=== PATIENT | female | born 1960 | race Hispanic/Latino ===

== ENCOUNTER 2017-12-10 06:06 | Day surgery (SDC) | payer MEDICARE ==
[2017-12-08 11:07] LABS: APPEARANCE,URINE Clear (CLEAR); BILIRUBIN,URINE Negative (NEGATIVE); COLOR,URINE Yellow (YELLOW); GLUCOSE, URINE (UA) Negative (NEGATIVE); KETONES,URINE Negative (NEGATIVE); LEUKOCYTE ESTERASE ,URINE Negative (NEGATIVE); NITRATE,URINE Negative (NEGATIVE); OCCULT BLOOD,URINE Negative (NEGATIVE); PH,URINE 6.5 (5.0-8.0); PROTEIN,URINE Negative (NEGATIVE); UROBILINOGEN,URINE 0.2 mg/dL (0.2-1.0)
[2017-12-08 11:08] LABS: BASOPHILS % (AUTO) 0.7 % (0.0-5.0); EOSINOPHILS % (AUTO) 3.4 % (0.0-8.0); HEMATOCRIT 34.3 % (36-48); LYMPHOCYTES % (AUTO) 22.6 % (21.0-51.0); MEAN CORPUSCULAR HEMOGLOBIN 31.7 pg (27.0-33.0); MEAN CORPUSCULAR HGB CONC 33.5 g/dL (32.0-36.0); MEAN CORPUSCULAR VOLUME 94.4 fL (79-99); NEUTROPHILS % (AUTO) 58.3 % (40.0-77.0); PLATELET COUNT (AUTO) 141 K/uL (130-400); RED BLOOD CELL COUNT(AUTO) 3.63 MIL/uL (4.00-5.50); RED CELL DISTRIBUTION WIDTH 13.7 % (11.0-15.5); WHITE BLOOD COUNT (AUTO) 5.7 K/uL (4.8-10.8)
[2017-12-08 11:13] LABS: CREATININE 0.9 mg/dL (0.5-1.5); POTASSIUM 4.8 mmol/L (3.5-5.1)
[2017-12-08 11:30] LABS: EOSINOPHILS % (MANUAL) 8 % (1-6); LYMPHOCYTES % (MANUAL) 12 % (22-44); MONOCYTES % (MANUAL) 8 % (2-9); REACTIVE LYMPHOCYTES 6 % (0-0); SEGMENTED NEUTROPHILS % 66 % (40-70)
[2017-12-08 11:31] LABS: INR 1.87 (0.85-1.15); MAN.DIFF COMMENT-IMPRESSION MANUAL DIFFERENTIAL; PARTIAL THROMBOPLASTIN TIME 37.2 SEC (26.3-35.5); PLATELET MORPHOLOGY COMMENT ADEQUATE; PROTHROMBIN TIME 19.4 SEC (9.6-11.6)
[2017-12-08 12:23] VITALS: BP 184/83
[~2017-12-10] VITALS: Ht 165.1 cm; Wt 72.6 kg
[2017-12-10] VITALS (12 sets, daily range): BP systolic 130–168; BP diastolic 62–83
[~2017-12-10 06:06] MED LIST: ASCO500T9 PO; CYCL30DR OU; DIGE1TAB PO; FE F1CAP8 PO; FOLI1TAB61 PO; KRILL OIL PO; L.AC1CAP6 PO; LYSI100014 PO; MAGN500C15 PO; METO25TA3 PO; MYCO360T PO; PRED2.5T PO; TACR1CAP18 PO; TRAV2.5D OU; WARF2.5T85 PO
[2017-12-10] MEDS ORDERED: SODIUM CHLORIDE 0.9% 1000ML 1,000 ML IV ONE (07:49)
[2017-12-10] MEDS ORDERED: HEPARIN SODIUM 1000UNIT/ML 10ML VIAL ONE (08:54)
[2017-12-10] MEDS ORDERED: SODIUM BICARB 50MEQ 50ML VIAL ONE (08:54)
[2017-12-10] MEDS ORDERED: NITROGLYCERIN 5 MG/ML 10 ML VIAL IV ONE (08:54)
[2017-12-10] MEDS ORDERED: ISOVUE-300 100 ML VIAL IV ONE (08:54)
[2017-12-10] MEDS ORDERED: MEPERIDINE-PF 25 MG/ML SYG ONE (08:55)
[2017-12-10] MEDS ORDERED: MIDAZOLAM HCL 1 MG/ML 2ML VIAL ONE (08:55)
[2017-12-10] MEDS ORDERED: LIDOCAINE HCL 2% 20ML ONE (08:55)
[2017-12-10] MEDS ORDERED: LABETALOL HCL 5 MG/ML 20ML VIAL IV ONE (09:36)
[2017-12-10] MEDS ORDERED: SODIUM CHLORIDE 0.9% 1000ML 1,000 ML IV SCH (10:45)
[2017-12-10] MEDS ORDERED: ACETAMINOPHEN-CODEINE 300/30MG TAB PO PRN (10:45)
[2017-12-10] MEDS ORDERED: CLOP75TA14 PO (10:51)
[2017-12-10] MEDS ORDERED: CLOPIDOGREL BISULFATE 300 MG TAB ONE (10:53)
[2017-12-10] MEDS ORDERED: WARFARIN SODIUM 10 MG TABLET PO SCH (11:00)
== END 2017-12-10 17:38 | disposition home or self-care (01) ==
LOC: SUH 06:06 → DAH 06:06 → SUH 17:38
PROVIDERS: ATTEND Internal Medicine Cardiovascular Disease
DX: I35.0 Nonrheumatic aortic (valve) stenosis (principal); I99.8 Other disorder of circulatory system; N18.9 Chronic kidney disease, unspecified; I12.9 Hypertensive chronic kidney disease with stage 1 through stage 4 chronic kidney disease, or unspecified chronic kidney disease; E78.5 Hyperlipidemia, unspecified; Z79.01 Long term (current) use of anticoagulants; Z79.899 Other long term (current) drug therapy; Z88.0 Allergy status to penicillin; Z88.8 Allergy status to other drugs, medicaments and biological substances; K55.1 Chronic vascular disorders of intestine; I70.25 Atherosclerosis of native arteries of other extremities with ulceration; L98.499 Non-pressure chronic ulcer of skin of other sites with unspecified severity
CPT/HCPCS: 36245 ×2; 36415 ×2; 37224; 37228; 37236; 37237; 71045; 75716; 75726; 80048; 81003; 85025; 85347 ×2; 85610; 85730; 93005; A4606; C1725 ×2; C1760; C1769 ×2; C1874; C1876; C1887; C1893; C1894; J1644; J3490 ×4; J7030; Q9967; 85007; J2175; J2250

== ENCOUNTER 2017-12-29 19:50 | Emergency (ER) | payer MEDICARE ==
[~2017-12-29 19:50] MED LIST changes: -ASCO500T9 PO; +CLOP75TA14 PO
[2017-12-29 20:48] LABS: APPEARANCE,URINE Clear (CLEAR); BILIRUBIN,URINE Negative (NEGATIVE); COLOR,URINE Yellow (YELLOW); GLUCOSE, URINE (UA) Negative (NEGATIVE); KETONES,URINE Negative (NEGATIVE); LEUKOCYTE ESTERASE ,URINE Negative (NEGATIVE); NITRATE,URINE Negative (NEGATIVE); OCCULT BLOOD,URINE Negative (NEGATIVE); PROTEIN,URINE Negative (NEGATIVE); UROBILINOGEN,URINE 0.2 mg/dL (0.2-1.0)
[2017-12-29 20:50] LABS: BASOPHILS % (AUTO) 0.5 % (0.0-5.0); EOSINOPHILS % (AUTO) 0.1 % (0.0-8.0); HEMATOCRIT 31.6 % (36-48); LYMPHOCYTES % (AUTO) 5.4 % (21.0-51.0); MEAN CORPUSCULAR HEMOGLOBIN 32.5 pg (27.0-33.0); MEAN CORPUSCULAR HGB CONC 34.5 g/dL (32.0-36.0); MEAN CORPUSCULAR VOLUME 94.4 fL (79-99); MONOCYTES % (AUTO) 6.8 % (3.0-13.0); NEUTROPHILS % (AUTO) 87.2 % (40.0-77.0); NUCLEATED RED BLOOD CELLS 0.1 % (0.0-0.19); PLATELET COUNT (AUTO) 151 K/uL (130-400); RED BLOOD CELL COUNT(AUTO) 3.35 MIL/uL (4.00-5.50); RED CELL DISTRIBUTION WIDTH 13.9 % (11.0-15.5); WHITE BLOOD COUNT (AUTO) 15.6 K/uL (4.8-10.8)
[2017-12-29 20:59] LABS: CREATININE 1.3 mg/dL (0.5-1.5); POTASSIUM 3.9 mmol/L (3.5-5.1)
[2017-12-29 23:51] LABS: ALBUMIN 3.5 g/dL (3.5-5.0); BILIRUBIN,DIRECT 0.1 mg/dL (0.0-0.3); BILIRUBIN,TOTAL 0.5 mg/dL (0.2-1.0); TOTAL PROTEIN, SERUM 7.3 g/dL (6.0-8.3)
[2017-12-30 00:07] LABS: INR 1.79 (0.85-1.15); PARTIAL THROMBOPLASTIN TIME 41.1 SEC (26.3-35.5); PROTHROMBIN TIME 18.6 SEC (9.6-11.6)
== END 2017-12-30 00:21 | disposition home or self-care (01) ==
LOC: EDH 19:50
DX: E87.1 Hypo-osmolality and hyponatremia (principal); I38 Endocarditis, valve unspecified; I12.0 Hypertensive chronic kidney disease with stage 5 chronic kidney disease or end stage renal disease; N18.6 End stage renal disease; M32.9 Systemic lupus erythematosus, unspecified; D64.9 Anemia, unspecified; Z88.0 Allergy status to penicillin; Z88.1 Allergy status to other antibiotic agents; Z88.8 Allergy status to other drugs, medicaments and biological substances; Z94.0 Kidney transplant status; Z98.62 Peripheral vascular angioplasty status; Z99.2 Dependence on renal dialysis
CPT/HCPCS: 36415; 71045; 80048; 80076; 81003; 85025; 85610; 85730; 87040; 87804

== ENCOUNTER 2018-12-23 23:51 | Inpatient (IN) | payer MEDICARE ==
[~2018-12-23] VITALS: Ht 165.1 cm; Wt 72.2 kg
[2018-12-24] MEDS ORDERED: IPRATROPIUM/ALBUTEROL SULFATE 3 ML SOLUTION IH ONE (00:37)
[2018-12-24] MEDS ORDERED: METHYLPREDNISOLONE SOD SUCC 125MG/2ML VIAL ONE (00:38)
[2018-12-24] MEDS ORDERED: HYDRALAZINE HCL 20 MG/ML VIAL ONE (01:23)
[2018-12-24] MEDS ORDERED: FUROSEMIDE 10 MG/ML 2ML VIAL ONE (02:09)
[2018-12-24] MEDS ORDERED: ALBUTEROL SULFATE 0.083% 2.5 MG/3 ML INH IH ONE (02:20)
--- NOTE | 2018-12-24 03:35 | NUR ---
Admission note: Admitted to floor via wheelchair. Fully awake and responsive. Placed in bed comfortably. Assessment done. VS checked and recorded. was with the patient. Oriented to room and used of call light. Policies and procedures explained. Plan of care initiated. Attached to telemetry at bedside with SR result. Observed for any unusual changes. Needs attended and cared for. Distress / discomfort not noted.
[2018-12-24 04:35] VITALS: BP 153/78
[2018-12-24 05:36] LABS: B-TYPE NATRIURETIC PEPTIDE 690 pg/mL (0-100)
[2018-12-24 06:16] LABS: INR 2.2 (0.85-1.15); PARTIAL THROMBOPLASTIN TIME 48.1 SEC (26.3-35.5); PROTHROMBIN TIME 22.7 SEC (9.6-11.6)
[2018-12-24 06:17] LABS: ALBUMIN 3.7 g/dL (3.5-5.0); BASOPHILS % (AUTO) 0.7 % (0.0-5.0); BILIRUBIN,TOTAL 0.3 mg/dL (0.2-1.0); CREATININE 1.6 mg/dL (0.5-1.5); EOSINOPHILS % (AUTO) 6.8 % (0.0-8.0); HEMATOCRIT 28.7 % (36-48); LYMPHOCYTES % (AUTO) 19.9 % (21.0-51.0); MEAN CORPUSCULAR HEMOGLOBIN 30.3 pg (27.0-33.0); MEAN CORPUSCULAR VOLUME 92.1 fL (79-99); MONOCYTES % (AUTO) 15.1 % (3.0-13.0); NEUTROPHILS % (AUTO) 57.5 % (40.0-77.0); NUCLEATED RED BLOOD CELLS 0.2 % (0.0-0.19); PLATELET COUNT (AUTO) 173 K/uL (130-400); POTASSIUM 4.2 mmol/L (3.5-5.1); RED BLOOD CELL COUNT(AUTO) 3.11 MIL/uL (4.00-5.50); TOTAL PROTEIN, SERUM 6.9 g/dL (6.0-8.3)
[2018-12-24 07:00] VITALS: BP 147/75
[2018-12-24] MEDS: LEVOFLOXACIN 500 MG/D5W 100 ML 100 ML IV SCH (07:45)
[2018-12-24 07:53] LABS: APPEARANCE,URINE CLEAR (CLEAR); COLOR,URINE YELLOW (YELLOW)
[2018-12-24 07:54] LABS: BILIRUBIN,URINE NEGATIVE (NEGATIVE); GLUCOSE, URINE (UA) NEGATIVE (NEGATIVE); KETONES,URINE NEGATIVE (NEGATIVE); LEUKOCYTE ESTERASE ,URINE NEGATIVE (NEGATIVE); NITRATE,URINE NEGATIVE (NEGATIVE); OCCULT BLOOD,URINE NEGATIVE (NEGATIVE); PH,URINE 6.5 (5.0-8.0); PROTEIN,URINE NEGATIVE (NEGATIVE); UROBILINOGEN,URINE 0.2 mg/dL (0.2-1.0)
[2018-12-24] MEDS: IPRATROPIUM/ALBUTEROL SULFATE 3 ML SOLUTION IH SCH ×2 (08:30→21:01)
[2018-12-24] MEDS: LIPASE/PROTEASE/AMYLASE 5000/17000/24000 PO SCH ×3 (08:30→17:00)
[2018-12-24] MEDS: LYSINE 1000 MG PO SCH (09:00)
[2018-12-24] MEDS: KRILL OIL PO SCH (09:00)
[2018-12-24] MEDS: RESTASIS OU SCH (09:00)
[2018-12-24] MEDS ORDERED: LATANOPROST 2.5 ML DROPS OU SCH (09:00)
[2018-12-24] MEDS: FOLIC ACID/VITAMIN B COMP W-C 1 MG CAPSULE PO SCH (09:49)
[2018-12-24] MEDS: LACTOBACILLUS RHAMNOSUS GG 1 EACH CAP.SPRINK PO SCH ×2 (09:49→21:35)
[2018-12-24] MEDS: METOPROLOL TARTRATE 25 MG TAB PO SCH ×2 (09:49→21:36)
[2018-12-24] MEDS: MAGNESIUM OXIDE 400 MG TABLET PO SCH (09:49)
[2018-12-24] MEDS: FE FUMARATE/FA/MV, MIN COMB#15 1 TAB PO SCH ×2 (09:50→21:35)
[2018-12-24] MEDS: CLOPIDOGREL BISULFATE 75 MG TAB PO SCH (09:50)
[2018-12-24] MEDS: TACROLIMUS 1 MG CAPSULE PO SCH (09:50)
[2018-12-24] MEDS: METHYLPREDNISOLONE SOD SUCC 40MG/ML 1ML IVP SCH ×2 (09:51→21:33)
[2018-12-24] MEDS: FUROSEMIDE 10 MG/ML 2ML VIAL IV SCH ×2 (09:53→21:32)
[2018-12-24 11:00] VITALS: BP 166/87
[2018-12-24 16:00] VITALS: BP 165/79
--- NOTE | 2018-12-24 16:26 | NUR ---
NOTIFIED DR MATEUS MELTON OF CT AND XRAY RESULTS , REGARDING PATIENT REFUSING LEVAQUIN UNTIL FULLY CERTAIN IT IS AN INFECTION. PER MD STILL WILL KEEP MEDICATION ACTIVE BECAUSE PATIENT NEEDS IT AND IF PATIENT REFUSES TO DOCRUMENT REFUSAL ,ALSO TO HAVE BENCHMARK BE CONSULTED . EXPLAINED TO NANY VALDES NEW ORDER. PATIENT STATED SHE WILL FEEL BETTER HEARING FROM A PULMONARY DOCTOR
[2018-12-24 20:00] VITALS: BP 157/79
[2018-12-24] MEDS: WARFARIN SODIUM 7.5 MG TAB PO SCH (21:34)
[2018-12-24] MEDS ORDERED: BENZONATATE 100 MG CAPSULE PO PRN (23:30)
[2018-12-24] MEDS ORDERED: BENZONATATE 100 MG CAPSULE PO ONE (23:33)
[2018-12-25] VITALS (7 sets, daily range): BP systolic 135–174; BP diastolic 70–92
[2018-12-25 04:27] LABS: BASOPHILS % (AUTO) 0.2 % (0.0-5.0); HEMATOCRIT 27.6 % (36-48); MEAN CORPUSCULAR HEMOGLOBIN 30.8 pg (27.0-33.0); MEAN CORPUSCULAR HGB CONC 33.3 g/dL (32.0-36.0); MEAN CORPUSCULAR VOLUME 92.4 fL (79-99); MONOCYTES % (AUTO) 6.4 % (3.0-13.0); NEUTROPHILS % (AUTO) 86.4 % (40.0-77.0); PLATELET COUNT (AUTO) 182 K/uL (130-400); RED BLOOD CELL COUNT(AUTO) 2.99 MIL/uL (4.00-5.50); RED CELL DISTRIBUTION WIDTH 14.3 % (11.0-15.5); WHITE BLOOD COUNT (AUTO) 8.3 K/uL (4.8-10.8)
[2018-12-25 04:31] LABS: INR 3.05 (0.85-1.15); PROTHROMBIN TIME 31.3 SEC (9.6-11.6)
[2018-12-25 04:35] LABS: CREATININE 1.8 mg/dL (0.5-1.5)
[2018-12-25] MEDS: IPRATROPIUM/ALBUTEROL SULFATE 3 ML SOLUTION IH SCH ×2 (07:41→21:00)
[2018-12-25] MEDS: LEVOFLOXACIN 500 MG/D5W 100 ML 100 ML IV SCH (07:45)
[2018-12-25] MEDS: RESTASIS OU SCH (08:43)
[2018-12-25] MEDS: LYSINE 1000 MG PO SCH (08:44)
[2018-12-25] MEDS: KRILL OIL PO SCH (08:44)
[2018-12-25] MEDS: MYCOPHENOLATE SODIUM 360 MG PO SCH (08:44)
[2018-12-25] MEDS: CLOPIDOGREL BISULFATE 75 MG TAB PO SCH (09:00)
[2018-12-25] MEDS: LACTOBACILLUS RHAMNOSUS GG 1 EACH CAP.SPRINK PO SCH ×2 (10:21→23:04)
[2018-12-25] MEDS: FE FUMARATE/FA/MV, MIN COMB#15 1 TAB PO SCH ×2 (10:21→23:04)
[2018-12-25] MEDS: FOLIC ACID/VITAMIN B COMP W-C 1 MG CAPSULE PO SCH (10:21)
[2018-12-25] MEDS: MAGNESIUM OXIDE 400 MG TABLET PO SCH (10:21)
[2018-12-25] MEDS: METOPROLOL TARTRATE 25 MG TAB PO SCH ×2 (10:21→23:04)
[2018-12-25] MEDS: METHYLPREDNISOLONE SOD SUCC 40MG/ML 1ML IVP SCH ×2 (10:21→23:03)
[2018-12-25] MEDS: TACROLIMUS 1 MG CAPSULE PO SCH (10:21)
[2018-12-25] MEDS: FUROSEMIDE 10 MG/ML 2ML VIAL IV SCH (10:28)
[2018-12-25] MEDS: LIPASE/PROTEASE/AMYLASE 5000/17000/24000 PO SCH (16:35)
[2018-12-25] MEDS: BUDESONIDE 0.5 MG/2 ML INH IH SCH (18:20)
[2018-12-25] MEDS: DOXYCYCLINE HYCLATE 100 MG TABLET PO SCH (23:04)
[2018-12-25] MEDS: WARFARIN SODIUM 7.5 MG TAB PO SCH (23:04)
[2018-12-26 03:31] LABS: ABG BASE EXCESS -3.8 mmol/L (-2.0-3.0); ABG HCO3 20.5 mmol/L (21.0-28.0); ABG OXYGEN SATURATION 97.2 % (95.0-99.0); ABG PCO2 36 mmHg (32-45)
[2018-12-26 03:50] VITALS: BP 158/80
[2018-12-26 04:40] LABS: HEMATOCRIT 29.6 % (36-48); MEAN CORPUSCULAR HEMOGLOBIN 30.2 pg (27.0-33.0); MEAN CORPUSCULAR HGB CONC 33.1 g/dL (32.0-36.0); MEAN CORPUSCULAR VOLUME 91.3 fL (79-99); PLATELET COUNT (AUTO) 207 K/uL (130-400); RED BLOOD CELL COUNT(AUTO) 3.24 MIL/uL (4.00-5.50); RED CELL DISTRIBUTION WIDTH 14.3 % (11.0-15.5); WHITE BLOOD COUNT (AUTO) 9.4 K/uL (4.8-10.8)
[2018-12-26 04:51] LABS: PARTIAL THROMBOPLASTIN TIME 44.5 SEC (26.3-35.5)
[2018-12-26 04:52] LABS: ALBUMIN 3.4 g/dL (3.5-5.0); BILIRUBIN,TOTAL 0.3 mg/dL (0.2-1.0); CREATININE 1.7 mg/dL (0.5-1.5); MAGNESIUM 2.1 mg/dL (1.80-2.40); PHOSPHORUS 4.2 mg/dL (2.5-4.9); POTASSIUM 4.3 mmol/L (3.5-5.1); TOTAL PROTEIN, SERUM 7.2 g/dL (6.0-8.3)
[2018-12-26 05:15] LABS: INR 3.54 (0.85-1.15); PROTHROMBIN TIME 36.3 SEC (9.6-11.6)
[2018-12-26] MEDS: BUDESONIDE 0.5 MG/2 ML INH IH SCH ×2 (07:38→18:00)
[2018-12-26] MEDS: LEVOFLOXACIN 500 MG/D5W 100 ML 100 ML IV SCH (07:45)
[2018-12-26 08:21] VITALS: BP 151/83
[2018-12-26] MEDS: LIPASE/PROTEASE/AMYLASE 5000/17000/24000 PO SCH (08:31)
[2018-12-26] MEDS: MYCOPHENOLATE SODIUM 360 MG PO SCH (09:00)
[2018-12-26] MEDS: LYSINE 1000 MG PO SCH (09:00)
[2018-12-26] MEDS: DOXYCYCLINE HYCLATE 100 MG TABLET PO SCH (09:00)
[2018-12-26] MEDS: KRILL OIL PO SCH (09:00)
[2018-12-26] MEDS: RESTASIS OU SCH (09:00)
[2018-12-26] MEDS: LACTOBACILLUS RHAMNOSUS GG 1 EACH CAP.SPRINK PO SCH (10:45)
[2018-12-26] MEDS: METOPROLOL TARTRATE 25 MG TAB PO SCH (10:45)
[2018-12-26] MEDS: TACROLIMUS 1 MG CAPSULE PO SCH (10:46)
[2018-12-26] MEDS: FOLIC ACID/VITAMIN B COMP W-C 1 MG CAPSULE PO SCH (10:46)
[2018-12-26] MEDS: FE FUMARATE/FA/MV, MIN COMB#15 1 TAB PO SCH (10:46)
[2018-12-26] MEDS: MAGNESIUM OXIDE 400 MG TABLET PO SCH (10:46)
[2018-12-26] MEDS: METHYLPREDNISOLONE SOD SUCC 40MG/ML 1ML IVP SCH (10:47)
[2018-12-26 11:59] VITALS: BP 142/78
[2018-12-26] MEDS ORDERED: DOXY100C2 PO (16:14)
[2018-12-26] MEDS ORDERED: PRED10TA3 PO (16:14)
[2018-12-26] MEDS ORDERED: BENZ-17 PO (16:14)
--- NOTE | 2018-12-26 16:42 | NUR ---
DR. JAVIER Rodriguez was informed of INR 3.54 today. Stated parameters are 2.5 to 3.5 and that at 3.54 patient is within parameters and no further orders.
--- NOTE | 2018-12-27 07:41 | NUR ---
[facility], WILL RETURN , NO CONCERNS VOICED BY JENNY TO [facility]. Addendum: 12/27/18 at 0742 by MICAELA ESCOBEDO RN CM Amended: Links added.
== END 2018-12-26 19:38 | disposition home or self-care (01) | DRG 682 ==
LOC: EDH 23:51 → EDHIP 12-24 02:23 → 3AH 12-24 04:35
PROVIDERS: ADMIT Internal Medicine Nephrology; ATTEND Internal Medicine Nephrology
DX: N17.9 Acute kidney failure, unspecified (principal); J81.0 Acute pulmonary edema; J81.1 Chronic pulmonary edema; J20.9 Acute bronchitis, unspecified; N18.9 Chronic kidney disease, unspecified; I12.9 Hypertensive chronic kidney disease with stage 1 through stage 4 chronic kidney disease, or unspecified chronic kidney disease; D64.9 Anemia, unspecified; G62.9 Polyneuropathy, unspecified; I08.0 Rheumatic disorders of both mitral and aortic valves; I48.0 Paroxysmal atrial fibrillation; I73.9 Peripheral vascular disease, unspecified; J84.10 Pulmonary fibrosis, unspecified; M32.9 Systemic lupus erythematosus, unspecified; M81.0 Age-related osteoporosis without current pathological fracture; Z96.643 Presence of artificial hip joint, bilateral; Z79.01 Long term (current) use of anticoagulants; Z79.52 Long term (current) use of systemic steroids; Z98.61 Coronary angioplasty status; Z95.2 Presence of prosthetic heart valve; Z89.421 Acquired absence of other right toe(s); Z88.0 Allergy status to penicillin; Z88.8 Allergy status to other drugs, medicaments and biological substances; Z83.3 Family history of diabetes mellitus
CPT/HCPCS: 36415; 36600; 71045; 71250; 80048; 80053; 81003; 82550; 82803; 83605; 83690; 83735; 83880; 84100; 84484; 85025; 85027; 85610; 85730; 87040; 87804; 93005; 93306; 94640; 94664; G0378; J0360; J1940; J1956; J2920; J2930; J7507

== ENCOUNTER 2019-05-19 06:11 | Observation (INO) | payer MEDICARE ==
[2019-05-14 12:36] LABS: BASOPHILS % (AUTO) 1.5 % (0.0-5.0); EOSINOPHILS % (AUTO) 2.2 % (0.0-8.0); HEMATOCRIT 32.4 % (36-48); LYMPHOCYTES % (AUTO) 18.6 % (21.0-51.0); MEAN CORPUSCULAR HEMOGLOBIN 29.7 pg (27.0-33.0); MEAN CORPUSCULAR HGB CONC 32.5 g/dL (32.0-36.0); MEAN CORPUSCULAR VOLUME 91.3 fL (79-99); MONOCYTES % (AUTO) 13.1 % (3.0-13.0); NEUTROPHILS % (AUTO) 64.6 % (40.0-77.0); PLATELET COUNT (AUTO) 153 K/uL (130-400); RED BLOOD CELL COUNT(AUTO) 3.55 MIL/uL (4.00-5.50); RED CELL DISTRIBUTION WIDTH 15.5 % (11.0-15.5); WHITE BLOOD COUNT (AUTO) 4.4 K/uL (4.8-10.8)
[2019-05-14 12:41] LABS: APPEARANCE,URINE Clear (CLEAR); BILIRUBIN,URINE Negative (NEGATIVE); COLOR,URINE Yellow (YELLOW); GLUCOSE, URINE (UA) Negative (NEGATIVE); KETONES,URINE Negative (NEGATIVE); LEUKOCYTE ESTERASE ,URINE Negative (NEGATIVE); NITRATE,URINE Negative (NEGATIVE); OCCULT BLOOD,URINE Negative (NEGATIVE); PROTEIN,URINE Negative (NEGATIVE); UROBILINOGEN,URINE 0.2 mg/dL (0.2-1.0)
[2019-05-14 12:44] VITALS: BP 193/96
[2019-05-14 12:49] LABS: CREATININE 1.6 mg/dL (0.5-1.5); POTASSIUM 4.7 mmol/L (3.5-5.1)
[2019-05-14 12:57] LABS: INR 2.71 (0.85-1.15); PARTIAL THROMBOPLASTIN TIME 42.2 SEC (26.3-35.5); PROTHROMBIN TIME 27.9 SEC (9.6-11.6)
--- NOTE | 2019-05-17 12:28 | NUR ---
SPOKE TO ELIOT PERERA AND REPORTED WBC 4.4, HEMOGLOBIN 10.6, BUN 41, MANAGER SERVICING 1.6, INR 2.71, PTT 42.2, NEW ORDER FOR PT/INR IN AM.
[2019-05-18 06:10] VITALS: BP 176/94
[2019-05-18 06:39] LABS: INR 2.31 (0.85-1.15); PARTIAL THROMBOPLASTIN TIME 38.3 SEC (26.3-35.5); PROTHROMBIN TIME 23.9 SEC (9.6-11.6)
--- NOTE | 2019-05-18 07:50 | NUR ---
ABNORMAL INR RESULT REPORTED TO NICOLE MASSEY. PT FORGOT TO HOLD WARFARIN 2 DAYS PRIOR TO PROCEDURE. PT RESCHEDULED FOR TOMORROW 05/19/2019.
--- NOTE | 2019-05-18 07:50 | NUR ---
PT INFORMED TO KEEP HOLDING WARFARIN.
[~2019-05-19] VITALS: Ht 165.1 cm; Wt 67.5 kg
[2019-05-19] VITALS (14 sets, daily range): BP systolic 122–174; BP diastolic 57–86
[~2019-05-19 06:11] MED LIST changes: -CLOP75TA14 PO; -CYCL30DR OU; -DIGE1TAB PO; -FE F1CAP8 PO; -FOLI1TAB61 PO; -KRILL OIL PO; -L.AC1CAP6 PO; -LYSI100014 PO; -MAGN500C15 PO; +SODIUM CHLORIDE 0.9% 1000ML 1,000 ML IV SCH; +SODIUM CHLORIDE 0.9% 500ML 500 ML IV SCH; -TRAV2.5D OU; +WARF1TAB83 PO
--- NOTE | 2019-05-19 06:15 | NUR ---
PRE-PROCEDURE RECEIVED PT TO ROOM 7 VIA AMBULATING FOR SCHEDULED LHC. AWAKE IN NO ACUTE DISTRESS. CONNECTED TO CONTINUOUS CARDIOPULMONARY MONITORING. REPORTS NUMBNESS TO BILATERAL TOES. UNABLE TO FIND DORSALIS PEDIS PULSE OF LEFT FOOT W/ DOPPLER, FOOT COOL TO TOUCH. PT REPORTS SHE HAS PAIN TO LEFT LEG WHEN AMBULATING. NON-FUNCTIONING AV FISTULA TO LEFT UPPER ARM/PT S/P KIDNEY TRANSPLANT 2005. SIDE RAILS UP X2, BED IN LOWEST POSITION, AND CALL LIGHT W/IN REACH. Addendum: 05/19/19 at 0814 by KELECHI FRANKLIN RN RN NON-FUNCTIONING RIGHT CHEST PAC.
[2019-05-19] MEDS ORDERED: SODIUM CHLORIDE 0.9% 1000ML 1,000 ML IV ONE (06:24)
[2019-05-19 06:35] LABS: CREATININE 1.4 mg/dL (0.5-1.5); POTASSIUM 4.8 mmol/L (3.5-5.1)
[2019-05-19 06:36] LABS: INR 1.61 (0.85-1.15); PROTHROMBIN TIME 16.7 SEC (9.6-11.6)
--- NOTE | 2019-05-19 07:20 | NUR ---
LAB RESULTS NICOLE MASSEY NOTIFIED OF PT 16.7/INR 1.6. CREATININE 1.4. NO NEW ORDERS RECEIVED.
--- NOTE | 2019-05-19 08:14 | NUR ---
PROCEDURE TRANSFERRED TO ERECTING ENGINEER VIA BED FOR [facility] BY JENNY BERRY. AWAKE IN NO ACUTE DISTRESS.
[2019-05-19] MEDS ORDERED: IOHEXOL 350 MG/ML 100ML INFUS..BTL IV ONE (08:19)
[2019-05-19] MEDS ORDERED: IOHEXOL-350 50ML VIAL IV ONE (08:19)
[2019-05-19] MEDS ORDERED: LIDOCAINE HCL 1% 20 ML VIAL ONE (08:19)
[2019-05-19] MEDS ORDERED: NITROGLYCERIN 5 MG/ML 10 ML VIAL IV ONE (08:19)
[2019-05-19] MEDS ORDERED: HEPARIN SODIUM 1000UNIT/ML 10ML VIAL ONE (08:19)
[2019-05-19] MEDS ORDERED: SODIUM BICARB 50MEQ 50ML VIAL ONE (08:19)
[2019-05-19] MEDS ORDERED: FENTANYL CITRATE PF 50 MCG/1 ML 2ML VIAL ONE (08:29)
[2019-05-19] MEDS ORDERED: MIDAZOLAM HCL 1 MG/ML 2ML VIAL ONE ×2 (08:29→08:49)
[2019-05-19] MEDS ORDERED: IOHEXOL-350 75 ML VIAL IV ONE (09:33)
[2019-05-19] MEDS ORDERED: HYDRALAZINE HCL 20 MG/ML VIAL ONE (09:38)
[2019-05-19] MEDS ORDERED: LABETALOL HCL 5 MG/ML 20ML VIAL IV ONE (09:55)
[2019-05-19] MEDS ORDERED: CLOPIDOGREL BISULFATE 300 MG TAB ONE (10:10)
[2019-05-19] MEDS ORDERED: ASPIRIN 81MG TAB.CHEW ONE (10:10)
[2019-05-19] MEDS ORDERED: CLOPIDOGREL BISULFATE 300 MG TAB PO SCH (10:15)
[2019-05-19] MEDS ORDERED: TEMAZEPAM 30 MG CAP PO PRN (10:15)
[2019-05-19] MEDS ORDERED: WARFARIN SODIUM 5 MG TAB PO SCH (10:15)
[2019-05-19] MEDS ORDERED: ONDANSETRON HCL 4 MG/2 ML VIAL IVP PRN (10:15)
[2019-05-19] MEDS ORDERED: SODIUM CHLORIDE 0.9% 1000ML 1,000 ML IV SCH (10:15)
[2019-05-19] MEDS ORDERED: NITROGLYCERIN 50 MG/D5% WATER 1 BOT IV PRN (10:15)
[2019-05-19] MEDS: PANTOPRAZOLE SODIUM 40 MG TABLET.DR PO SCH (10:51)
--- NOTE | 2019-05-19 10:51 | NUR ---
POST-PROCEDURE RECEIVED FROM PHYSICIAN ASSISTANT PSYCHIATRY S/P C W/STENTS X3. CONNECTED TO CONTINUOUS CARDIOPULMONARY MONITORING. AWAKE IN NO ACUTE DISTRESS. PT EDUCATED TO KEEP RIGHT LEG STRAIGHT AND TO KEEP HEAD FLAT. PT VERBALIZED UNDERSTANDING. SIDE RAILS UP X2, BED IN LOWEST POSITION, AND CALL LIGHT W/IN REACH.
--- NOTE | 2019-05-19 13:11 | NUR ---
ORDER DR. MATUTE NOTIFIED OF CONSULT ORDER. NO NEW ORDERS RECEIVED.
[2019-05-19] MEDS ORDERED: PHARMACY COMMUNICATION MISC SCH (14:00)
--- NOTE | 2019-05-19 15:11 | NUR ---
REPORT REPORT GIVEN TO JENNY SERRA USING SBAR/VERBALIZED UNDERSTANDING.
--- NOTE | 2019-05-19 15:11 | NUR ---
REPORT HANDOFF/COMMUNICATION RECEIVED REPORT FROM JENNY LORENZ USING SBAR AT BEDSIDE. PATIENT AAOX3, RESPIRATIONS UNLABORED, VITAL SIGNS STABLE. PATIENT DENIES ANY PAIN AT THIS TIME. FEMORAL SITE WITH DSTAT IN PLACE IS DRY AND INTACT, NO SWELLING OR DRAINAGE NOTED. AREA IS SOFT AND NONTENDER. PEDAL PULSES PRESENT WITH DOPPLER. WILL CONTINUE TO MONITOR PATIENT.
--- NOTE | 2019-05-19 16:30 | NUR ---
REPORT/HANDOFF HANDOFF/REPORT GIVEN TO JENNY ALVARADO USING SBAR. ALL QUESTIONS/CONCERNS ADDRESSED
--- NOTE | 2019-05-19 17:58 | NUR ---
report report given to yue mcclellan rn
--- NOTE | 2019-05-19 18:00 | NUR ---
trasnferred patient transfered to room 2 Addendum: 05/19/19 at 1816 by CHRISTIANO GARCIA RN transfer patient transferred to room 230, receiving nurse Mae Reed RN
[2019-05-19] MEDS: TACROLIMUS 1 MG CAPSULE PO SCH (20:16)
[2019-05-19] MEDS: METOPROLOL TARTRATE 25 MG TAB PO SCH (20:17)
[2019-05-20 03:37] LABS: HEMATOCRIT 28.3 % (36-48); MEAN CORPUSCULAR HEMOGLOBIN 30.1 pg (27.0-33.0); MEAN CORPUSCULAR HGB CONC 33.1 g/dL (32.0-36.0); MEAN CORPUSCULAR VOLUME 90.8 fL (79-99); NUCLEATED RED BLOOD CELLS 0.1 % (0.0-0.19); PLATELET COUNT (AUTO) 131 K/uL (130-400); RED BLOOD CELL COUNT(AUTO) 3.12 MIL/uL (4.00-5.50); RED CELL DISTRIBUTION WIDTH 15.3 % (11.0-15.5); WHITE BLOOD COUNT (AUTO) 4.6 K/uL (4.8-10.8)
[2019-05-20 04:01] LABS: INR 1.37 (0.85-1.15); PROTHROMBIN TIME 14.3 SEC (9.6-11.6)
[2019-05-20 04:16] LABS: CREATININE 1.6 mg/dL (0.5-1.5); POTASSIUM 4.4 mmol/L (3.5-5.1)
[2019-05-20 04:48] VITALS: BP 166/87
[2019-05-20 08:02] VITALS: BP 158/77
[2019-05-20] MEDS ORDERED: ENOXAPARIN SODIUM 80 MG/0.8 ML SQ SCH (08:30)
[2019-05-20] MEDS ORDERED: WARFARIN SODIUM 2.5 MG TAB PO SCH (09:00)
[2019-05-20] MEDS ORDERED: WARFARIN SODIUM 5 MG TAB PO SCH (09:00)
[2019-05-20] MEDS: MYCOPHENOLATE SODIUM PO SCH (09:00)
[2019-05-20] MEDS: TACROLIMUS 1 MG CAPSULE PO SCH ×2 (09:28→21:24)
[2019-05-20] MEDS: ASPIRIN 81MG TAB.CHEW PO SCH (09:28)
[2019-05-20] MEDS: CLOPIDOGREL BISULFATE 75 MG TAB PO SCH (09:29)
[2019-05-20] MEDS: PANTOPRAZOLE SODIUM 40 MG TABLET.DR PO SCH (09:29)
[2019-05-20] MEDS: METOPROLOL TARTRATE 25 MG TAB PO SCH ×2 (09:30→21:24)
[2019-05-20] MEDS ORDERED: SODIUM CHLORIDE 0.9% 1000ML 1,000 ML IV SCH (09:30)
[2019-05-20] MEDS ORDERED: PHARMACY COMMUNICATION MISC SCH (09:45)
--- NOTE | 2019-05-20 10:24 | NUR ---
DCP: HOME met with pt and sherly Mukherjeelar [phone]. Pt is s/p kidney transplant in 2006. Pt was on dialysis 5yrs prior to transplant. Pt is now independent of ADLS, drives, has melquiades w/c,bs, built in bath bench. PCP is Monica Carrasco, and pharm is either [facility] or [facility]. Denies dc needs at this time. Plan is home at [facility] to follow and assist as needed Addendum: 05/20/19 at 1028 by ROBBY WREN Amended: Links added.
[2019-05-20 12:00] VITALS: BP 143/68
[2019-05-20 15:29] VITALS: BP 150/77
[2019-05-20] MEDS ORDERED: WARFARIN SODIUM 2 MG TAB PO SCH (16:00)
[2019-05-20] MEDS: SODIUM CHLORIDE 0.9% 1000ML 1,000 ML IV SCH (17:36)
[2019-05-20 19:39] VITALS: BP 136/68
[2019-05-21] VITALS: BP 151/68
[2019-05-21] MEDS: SODIUM CHLORIDE 0.9% 1000ML 1,000 ML IV SCH (02:30)
[2019-05-21 03:56] VITALS: BP 158/85
[2019-05-21 04:18] LABS: CREATININE 1.5 mg/dL (0.5-1.5); POTASSIUM 4.2 mmol/L (3.5-5.1)
[2019-05-21 07:00] VITALS: BP 158/81
[2019-05-21] MEDS ORDERED: FUROSEMIDE 10 MG/ML 10ML VIAL IVP SCH (07:45)
[2019-05-21 08:03] LABS: INR 1.46 (0.85-1.15); PROTHROMBIN TIME 15.2 SEC (9.6-11.6)
[2019-05-21] MEDS: TACROLIMUS 1 MG CAPSULE PO SCH (08:08)
[2019-05-21] MEDS: ASPIRIN 81MG TAB.CHEW PO SCH (08:09)
[2019-05-21] MEDS: PANTOPRAZOLE SODIUM 40 MG TABLET.DR PO SCH (08:09)
[2019-05-21] MEDS: CLOPIDOGREL BISULFATE 75 MG TAB PO SCH (08:09)
[2019-05-21] MEDS: METOPROLOL TARTRATE 25 MG TAB PO SCH (08:09)
[2019-05-21] MEDS: MYCOPHENOLATE SODIUM PO SCH (08:11)
[2019-05-21] MEDS ORDERED: ENOXAPARIN SODIUM 80 MG/0.8 ML SQ SCH (08:45)
[2019-05-21 11:00] VITALS: BP 157/74
[2019-05-25] MEDS ORDERED: PREDNISONE 5 MG TABLET PO SCH (09:00)
== END 2019-05-21 15:20 | disposition home or self-care (01) ==
LOC: DAH 06:11 → DAHIP 06:12 → 2AH 18:05
PROVIDERS: ADMIT Internal Medicine; ATTEND Internal Medicine
DX: I25.10 Atherosclerotic heart disease of native coronary artery without angina pectoris (principal); E87.70 Fluid overload, unspecified; G62.9 Polyneuropathy, unspecified; I44.7 Left bundle-branch block, unspecified; I45.81 Long QT syndrome; R14.0 Abdominal distension (gaseous); R19.7 Diarrhea, unspecified; I08.0 Rheumatic disorders of both mitral and aortic valves; I48.0 Paroxysmal atrial fibrillation; M32.9 Systemic lupus erythematosus, unspecified; M87.9 Osteonecrosis, unspecified; N18.9 Chronic kidney disease, unspecified; Z95.2 Presence of prosthetic heart valve; Z94.0 Kidney transplant status; Z99.2 Dependence on renal dialysis; Z96.649 Presence of unspecified artificial hip joint; Z79.01 Long term (current) use of anticoagulants; Z79.52 Long term (current) use of systemic steroids; Z79.899 Other long term (current) drug therapy
CPT/HCPCS: 36415 ×5; 71045 ×2; 80048 ×4; 81003; 82948; 85025; 85027; 85610 ×5; 85730 ×4; 93005 ×2; 93454; 96361 ×4; 96372 ×2; 96374; A4215 ×2; A4216 ×2; A4221 ×2; A4222 ×2; A4223 ×5; A4606 ×4; C1760; C1769; C1874 ×3; C1887 ×2; C1894 ×2; C9600 ×3; G0378 ×53; J0360; J1644 ×2; J1650 ×2; J1940; J2250 ×2; J3010; J3490 ×3; J7030 ×3; J7507 ×4; Q9965; Q9967 ×3; 96360; 99156; 99157

== ENCOUNTER → 2020-03-29 | Outpatient (CLI) | payer MEDICARE ==
[~2020-03-29] MED LIST changes: -SODIUM CHLORIDE 0.9% 1000ML 1,000 ML IV SCH; -SODIUM CHLORIDE 0.9% 500ML 500 ML IV SCH; -WARF1TAB83 PO
== END | disposition home or self-care (01) ==
LOC: WHH 10:01
PROVIDERS: ATTEND Podiatrist Foot & Ankle Surgery
DX: I70.245 Atherosclerosis of native arteries of left leg with ulceration of other part of foot (principal); L97.522 Non-pressure chronic ulcer of other part of left foot with fat layer exposed; M32.10 Systemic lupus erythematosus, organ or system involvement unspecified; M12.9 Arthropathy, unspecified; I12.9 Hypertensive chronic kidney disease with stage 1 through stage 4 chronic kidney disease, or unspecified chronic kidney disease; N18.9 Chronic kidney disease, unspecified; I25.10 Atherosclerotic heart disease of native coronary artery without angina pectoris; G62.9 Polyneuropathy, unspecified; J45.909 Unspecified asthma, uncomplicated; Z94.0 Kidney transplant status; Z95.1 Presence of aortocoronary bypass graft; Z99.0 Dependence on aspirator; Z79.899 Other long term (current) drug therapy; Z79.2 Long term (current) use of antibiotics; Z79.52 Long term (current) use of systemic steroids; Z96.643 Presence of artificial hip joint, bilateral; Z95.2 Presence of prosthetic heart valve
CPT/HCPCS: G0463

== ENCOUNTER → 2020-04-12 | Outpatient (CLI) | payer MEDICARE ==
[~2020-04-12] MED LIST changes: +LIDOCAINE HCL 4% LTA SOL 4 ML VIAL TP ONE
== END | disposition home or self-care (01) ==
LOC: WHH 10:00
PROVIDERS: ATTEND Podiatrist Foot & Ankle Surgery
DX: I70.245 Atherosclerosis of native arteries of left leg with ulceration of other part of foot (principal); L97.522 Non-pressure chronic ulcer of other part of left foot with fat layer exposed; M32.10 Systemic lupus erythematosus, organ or system involvement unspecified; M12.9 Arthropathy, unspecified; I12.9 Hypertensive chronic kidney disease with stage 1 through stage 4 chronic kidney disease, or unspecified chronic kidney disease; N18.9 Chronic kidney disease, unspecified; I25.10 Atherosclerotic heart disease of native coronary artery without angina pectoris; I48.0 Paroxysmal atrial fibrillation; G62.9 Polyneuropathy, unspecified; J45.909 Unspecified asthma, uncomplicated; Z94.0 Kidney transplant status; Z95.1 Presence of aortocoronary bypass graft; Z99.0 Dependence on aspirator; Z79.899 Other long term (current) drug therapy; Z79.2 Long term (current) use of antibiotics; Z79.52 Long term (current) use of systemic steroids; Z96.643 Presence of artificial hip joint, bilateral; Z95.2 Presence of prosthetic heart valve
CPT/HCPCS: G0463

== ENCOUNTER → 2020-04-19 | Outpatient (CLI) | payer MEDICARE ==
[~2020-04-19] MED LIST changes: -LIDOCAINE HCL 4% LTA SOL 4 ML VIAL TP ONE
== END | disposition home or self-care (01) ==
LOC: RAH 14:31
PROVIDERS: ATTEND Podiatrist Foot & Ankle Surgery
DX: L97.522 Non-pressure chronic ulcer of other part of left foot with fat layer exposed (principal); M79.89 Other specified soft tissue disorders
CPT/HCPCS: 73718

== ENCOUNTER → 2020-04-26 | Outpatient (CLI) | payer MEDICARE | END | disposition home or self-care (01) | LOC: WHH 10:00 | PROVIDERS: ATTEND Podiatrist Foot & Ankle Surgery | DX: I70.245 Atherosclerosis of native arteries of left leg with ulceration of other part of foot (principal); L97.522 Non-pressure chronic ulcer of other part of left foot with fat layer exposed; I12.9 Hypertensive chronic kidney disease with stage 1 through stage 4 chronic kidney disease, or unspecified chronic kidney disease; N18.9 Chronic kidney disease, unspecified; I25.10 Atherosclerotic heart disease of native coronary artery without angina pectoris; I48.0 Paroxysmal atrial fibrillation; G62.9 Polyneuropathy, unspecified; J45.909 Unspecified asthma, uncomplicated; M32.10 Systemic lupus erythematosus, organ or system involvement unspecified; M12.9 Arthropathy, unspecified; Z94.0 Kidney transplant status; Z95.1 Presence of aortocoronary bypass graft; Z99.0 Dependence on aspirator; Z79.899 Other long term (current) drug therapy; Z79.2 Long term (current) use of antibiotics; Z79.52 Long term (current) use of systemic steroids; Z96.643 Presence of artificial hip joint, bilateral; Z95.2 Presence of prosthetic heart valve | CPT/HCPCS: G0463 ==

== ENCOUNTER 2023-03-22 21:24 | Emergency (ER) | payer MEDICARE ==
[~2023-03-22] VITALS: Ht 165.1 cm; Wt 65.8 kg
[2023-03-22 22:14] LABS: BASOPHILS % (AUTO) 0.2 % (0.0-5.0); EOSINOPHILS % (AUTO) 0.4 % (0.0-8.0); HEMATOCRIT 23.7 % (36-48); LYMPHOCYTES % (AUTO) 7.6 % (21.0-51.0); MEAN CORPUSCULAR HEMOGLOBIN 29.9 pg (27.0-33.0); MEAN CORPUSCULAR HGB CONC 31.6 g/dL (32.0-36.0); MEAN CORPUSCULAR VOLUME 94.4 fL (79-99); MONOCYTES % (AUTO) 5.3 % (3.0-13.0); NEUTROPHILS % (AUTO) 85.6 % (40.0-77.0); PLATELET COUNT (AUTO) 104 K/uL (130-400); RED BLOOD CELL COUNT(AUTO) 2.51 MIL/uL (4.00-5.50); RED CELL DISTRIBUTION WIDTH 15.7 % (11.0-15.5); WHITE BLOOD COUNT (AUTO) 8.5 K/uL (4.8-10.8)
[2023-03-22 22:15] LABS: APPEARANCE,URINE CLEAR (CLEAR); BILIRUBIN,URINE NEGATIVE (NEGATIVE); COLOR,URINE COLORLESS (YELLOW); GLUCOSE, URINE (UA) NEGATIVE (NEGATIVE); KETONES,URINE NEGATIVE (NEGATIVE); LEUKOCYTE ESTERASE ,URINE NEGATIVE Leu/uL (NEGATIVE); NITRATE,URINE NEGATIVE (NEGATIVE); OCCULT BLOOD,URINE NEGATIVE (NEGATIVE); PH,URINE 5.5 (5.0-8.0); PROTEIN,URINE 50 mg/dL (NEGATIVE); UROBILINOGEN,URINE 0.2 mg/dL (0.2-1.0)
[2023-03-22 22:22] LABS: RBC,URINE 0-1 /HPF (0-1); WBC,URINE 0-1 /HPF (0-1)
[2023-03-22 22:25] LABS: CREATININE 3.2 mg/dL (0.5-1.5); POTASSIUM 5.4 mmol/L (3.5-5.1)
[2023-03-22 22:30] LABS: ALBUMIN 2.9 g/dL (3.5-5.0); MAGNESIUM 2.4 mg/dL (1.80-2.40); TOTAL PROTEIN, SERUM 6.5 g/dL (6.0-8.3)
[2023-03-22 22:41] LABS: PARTIAL THROMBOPLASTIN TIME 83.4 SEC (26.3-35.5)
[2023-03-22 22:52] LABS: B-TYPE NATRIURETIC PEPTIDE > 5000 pg/mL (0-100)
[2023-03-22 23:20] LABS: INR 4.08 (0.85-1.15)
[2023-03-22 23:21] LABS: PROTHROMBIN TIME 43.2 SEC (9.6-11.6)
[2023-03-23 01:08] VITALS: BP 155/88
== END 2023-03-23 01:09 | disposition home or self-care (01) ==
LOC: EDH 21:24
DX: I13.2 Hypertensive heart and chronic kidney disease with heart failure and with stage 5 chronic kidney disease, or end stage renal disease (principal); N18.6 End stage renal disease; I50.9 Heart failure, unspecified; Z79.899 Other long term (current) drug therapy; Z98.890 Other specified postprocedural states; Z88.0 Allergy status to penicillin; Z88.1 Allergy status to other antibiotic agents; Z88.5 Allergy status to narcotic agent; Z88.8 Allergy status to other drugs, medicaments and biological substances
CPT/HCPCS: 36415; 71045; 80053; 81001; 82550; 83605; 83735; 83880; 84484; 85025; 85610; 85730; 93005

== ENCOUNTER 2023-03-25 12:41 | Inpatient (IN) | payer MEDICARE ==
[~2023-03-25] VITALS: Ht 165.1 cm; Wt 64.4 kg
[2023-03-25 05:00] VITALS: BP 136/98; PULSE 64; RESP 16
[2023-03-25 13:09] LABS: BASOPHILS % (AUTO) 0.3 % (0.0-5.0); EOSINOPHILS % (AUTO) 0.6 % (0.0-8.0); LYMPHOCYTES % (AUTO) 4.2 % (21.0-51.0); MEAN CORPUSCULAR HEMOGLOBIN 30.6 pg (27.0-33.0); MEAN CORPUSCULAR HGB CONC 32.7 g/dL (32.0-36.0); MEAN CORPUSCULAR VOLUME 93.5 fL (79-99); MONOCYTES % (AUTO) 8.7 % (3.0-13.0); NEUTROPHILS % (AUTO) 85.6 % (40.0-77.0); PLATELET COUNT (AUTO) 81 K/uL (130-400); RED BLOOD CELL COUNT(AUTO) 2.16 MIL/uL (4.00-5.50); RED CELL DISTRIBUTION WIDTH 15.8 % (11.0-15.5); WHITE BLOOD COUNT (AUTO) 9.4 K/uL (4.8-10.8)
[2023-03-25 13:17] LABS: CREATININE 2.9 mg/dL (0.5-1.5); POTASSIUM 4.7 mmol/L (3.5-5.1)
[2023-03-25 13:19] LABS: APPEARANCE,URINE CLEAR (CLEAR); BILIRUBIN,URINE NEGATIVE (NEGATIVE); COLOR,URINE LIGHT-YELLOW (YELLOW); GLUCOSE, URINE (UA) NEGATIVE (NEGATIVE); KETONES,URINE NEGATIVE (NEGATIVE); LEUKOCYTE ESTERASE ,URINE NEGATIVE Leu/uL (NEGATIVE); NITRATE,URINE NEGATIVE (NEGATIVE); OCCULT BLOOD,URINE NEGATIVE (NEGATIVE); PH,URINE 5.5 (5.0-8.0); PROTEIN,URINE 30 mg/dL (NEGATIVE); UROBILINOGEN,URINE 0.2 mg/dL (0.2-1.0)
[2023-03-25 13:21] LABS: ALBUMIN 2.8 g/dL (3.5-5.0); TOTAL PROTEIN, SERUM 6.2 g/dL (6.0-8.3)
[2023-03-25 13:24] LABS: HEMATOCRIT 20.2 % (36-48)
[2023-03-25 13:26] LABS: WBC,URINE 0-1 /HPF (0-1)
[2023-03-25] MEDS ORDERED: NITROGLYCERIN 1GM OINT 1 INCH/1GM TD ONE (14:00)
[2023-03-25] MEDS ORDERED: ASPIRIN 325MG TAB PO ONE (14:00)
[2023-03-25] MEDS: ENOXAPARIN SODIUM 60 MG/0.6 ML SQ ONE ×2 (14:13→14:16)
[2023-03-25] MEDS ORDERED: HYDR-4154 PO (15:11)
[2023-03-25] MEDS ORDERED: PRED5TAB PO (15:11)
[2023-03-25] MEDS ORDERED: LEVO137T2 PO (15:11)
[2023-03-25] MEDS ORDERED: TACR5CAP2 PO (15:11)
[2023-03-25] MEDS ORDERED: FURO-151 PO (15:11)
[2023-03-25] MEDS ORDERED: ISOS30TA92 PO (15:11)
[2023-03-25] MEDS ORDERED: METO-391 PO (15:11)
[2023-03-25] MEDS ORDERED: PANTOPRAZOLE 40 MG/VIAL IVP ONE (16:30)
[2023-03-25] MEDS ORDERED: GUAIFENESIN-DM 200/20 MG 10 ML PO PRN (17:00)
[2023-03-25] MEDS ORDERED: LACTULOSE 20 GM/30 ML UDCUP PO PRN (17:00)
[2023-03-25] MEDS ORDERED: MAG/ALUM/SIMETH 30 ML UDCUP PO PRN (17:00)
[2023-03-25] MEDS ORDERED: ONDANSETRON 4MG INJ IV PRN (17:00)
[2023-03-25] MEDS ORDERED: DIPHENHYDRAMINE HCL 25 MG CAPSULE PO PRN (17:00)
[2023-03-25] MEDS ORDERED: NITROGLYCERIN 0.4 MG SL TAB SL PRN (17:00)
[2023-03-25] MEDS ORDERED: ACETAMINOPHEN 325 MG TAB PO PRN (17:00)
[2023-03-25] MEDS ORDERED: ACETAMINOPHEN WITH CODEINE 1 TAB TAB PO PRN (17:00)
[2023-03-25 17:05] LABS: HEMATOCRIT 20.8 % (36-48)
[2023-03-25] MEDS ORDERED: ACETAMINOPHEN 325 MG TAB PO ONE (17:30)
[2023-03-25] MEDS ORDERED: DIPHENHYDRAMINE HCL 25 MG CAPSULE PO ONE (17:30)
[2023-03-25] MEDS: PANTOPRAZOLE 40 MG/VIAL IVP SCH (22:19)
[2023-03-25] MEDS: ATORVASTATIN 40 MG TABLET PO SCH (22:19)
[2023-03-25 22:35] LABS: HEMATOCRIT 21.7 % (36-48)
[2023-03-26 02:00] VITALS: BP 136/71; PULSE 79; RESP 18
[2023-03-26 08:00] VITALS: BP 157/71; PULSE 74; RESP 18
[2023-03-26 08:19] LABS: HEMATOCRIT 21.4 % (36-48); MEAN CORPUSCULAR HEMOGLOBIN 29.6 pg (27.0-33.0); MEAN CORPUSCULAR HGB CONC 31.8 g/dL (32.0-36.0); NUCLEATED RED BLOOD CELLS 0.5 % (0.0-0.19); PLATELET COUNT (AUTO) 69 K/uL (130-400); RED CELL DISTRIBUTION WIDTH 16.2 % (11.0-15.5); WHITE BLOOD COUNT (AUTO) 6.2 K/uL (4.8-10.8)
[2023-03-26 08:44] LABS: CREATININE 2.9 mg/dL (0.5-1.5); POTASSIUM 4.3 mmol/L (3.5-5.1)
[2023-03-26 08:55] LABS: PLATELET MORPHOLOGY COMMENT DECREASED
[2023-03-26 09:08] LABS: ALBUMIN 2.6 g/dL (3.5-5.0); CREATININE 2.9 mg/dL (0.5-1.5); POTASSIUM 4.2 mmol/L (3.5-5.1); TOTAL PROTEIN, SERUM 5.6 g/dL (6.0-8.3)
[2023-03-26] MEDS: SODIUM BICARBONATE 650 MG TAB PO SCH ×2 (10:17→19:47)
[2023-03-26] MEDS: PANTOPRAZOLE 40 MG/VIAL IVP SCH ×2 (10:17→19:46)
[2023-03-26 10:48] LABS: INR 3.17 (0.85-1.15); PROTHROMBIN TIME 34.1 SEC (9.6-11.6)
[2023-03-26 10:50] LABS: PARTIAL THROMBOPLASTIN TIME 63.4 SEC (26.3-35.5)
[2023-03-26 12:01] VITALS: BP 126/59; PULSE 69; RESP 16
[2023-03-26] MEDS: HYDRALAZINE 25MG TABLET PO SCH ×2 (15:15→19:46)
[2023-03-26] MEDS: ISOSORBIDE MONO 30MG SR TAB PO SCH (15:16)
[2023-03-26] MEDS: METOPROLOL SUCCINATE 50 MG TAB.SR.24H PO SCH ×2 (15:16→19:47)
[2023-03-26] MEDS: PREDNISONE 5 MG TABLET PO SCH (15:16)
[2023-03-26 16:00] VITALS: BP 135/69; PULSE 71; RESP 18
[2023-03-26] MEDS: ATORVASTATIN 40 MG TABLET PO SCH ×2 (19:47→19:52)
[2023-03-26 20:00] VITALS: BP 132/60; PULSE 67; RESP 18; O2SAT 99
[2023-03-26] MEDS ORDERED: METOPROLOL SUCCINATE 50 MG TAB.SR.24H PO SCH (21:00)
[2023-03-27] VITALS (8 sets, daily range): BP systolic 132–148; BP diastolic 42–69; PULSE 65–99; RESP 18–20; O2SAT 99–100
[2023-03-27] MEDS: LEVOTHYROXINE 25 MCG TABLET PO SCH ×2 (06:30→06:33)
[2023-03-27] MEDS: LEVOTHYROXINE 112 MCG TABLET PO SCH ×2 (06:30→06:32)
[2023-03-27] MEDS ORDERED: PREDNISONE 5 MG TABLET PO SCH (09:00)
[2023-03-27] MEDS ORDERED: ISOSORBIDE MONO 30MG SR TAB PO SCH (09:00)
[2023-03-27] MEDS: PANTOPRAZOLE 40 MG/VIAL IVP SCH ×2 (09:10→19:18)
[2023-03-27] MEDS: HYDRALAZINE 25MG TABLET PO SCH ×3 (09:10→19:16)
[2023-03-27] MEDS: PREDNISONE 5 MG TABLET PO SCH (09:11)
[2023-03-27] MEDS: SODIUM BICARBONATE 650 MG TAB PO SCH ×2 (09:11→19:16)
[2023-03-27] MEDS: METOPROLOL SUCCINATE 50 MG TAB.SR.24H PO SCH ×2 (09:11→19:16)
[2023-03-27] MEDS: ISOSORBIDE MONO 30MG SR TAB PO SCH (09:12)
[2023-03-27] MEDS: TACROLIMUS 1 MG CAPSULE PO SCH (09:20)
[2023-03-27 15:20] LABS: INR 2.31 (0.85-1.15); PROTHROMBIN TIME 25.4 SEC (9.6-11.6)
[2023-03-27 17:54] LABS: BASOPHILS % (AUTO) 0.3 % (0.0-5.0); EOSINOPHILS % (AUTO) 0.3 % (0.0-8.0); HEMATOCRIT 22.9 % (36-48); MEAN CORPUSCULAR HEMOGLOBIN 29.8 pg (27.0-33.0); MEAN CORPUSCULAR HGB CONC 31.4 g/dL (32.0-36.0); MEAN CORPUSCULAR VOLUME 94.6 fL (79-99); MONOCYTES % (AUTO) 5.5 % (3.0-13.0); NEUTROPHILS % (AUTO) 87.9 % (40.0-77.0); PLATELET COUNT (AUTO) 66 K/uL (130-400); RED BLOOD CELL COUNT(AUTO) 2.42 MIL/uL (4.00-5.50); RED CELL DISTRIBUTION WIDTH 15.7 % (11.0-15.5); WHITE BLOOD COUNT (AUTO) 6.8 K/uL (4.8-10.8)
[2023-03-27 18:03] LABS: CREATININE 3.5 mg/dL (0.5-1.5); POTASSIUM 4.8 mmol/L (3.5-5.1)
[2023-03-27 18:07] LABS: ALBUMIN 2.5 g/dL (3.5-5.0); TOTAL PROTEIN, SERUM 5.5 g/dL (6.0-8.3)
[2023-03-27] MEDS: ATORVASTATIN 40 MG TABLET PO SCH (19:20)
[2023-03-28] VITALS (25 sets, daily range): BP systolic 115–174; BP diastolic 34–73; PULSE 57–70; RESP 15–20; O2SAT 95–100
[2023-03-28] MEDS: LEVOTHYROXINE 25 MCG TABLET PO SCH ×2 (05:29→05:30)
[2023-03-28] MEDS: LEVOTHYROXINE 112 MCG TABLET PO SCH (05:29)
[2023-03-28 06:13] LABS: BASOPHILS % (AUTO) 0.3 % (0.0-5.0); EOSINOPHILS % (AUTO) 1.4 % (0.0-8.0); LYMPHOCYTES % (AUTO) 10.1 % (21.0-51.0); MEAN CORPUSCULAR HEMOGLOBIN 30.3 pg (27.0-33.0); MEAN CORPUSCULAR HGB CONC 32.7 g/dL (32.0-36.0); MEAN CORPUSCULAR VOLUME 92.8 fL (79-99); MONOCYTES % (AUTO) 9.4 % (3.0-13.0); NEUTROPHILS % (AUTO) 77.3 % (40.0-77.0); NUCLEATED RED BLOOD CELLS 0.3 % (0.0-0.19); PLATELET COUNT (AUTO) 60 K/uL (130-400); RED BLOOD CELL COUNT(AUTO) 2.21 MIL/uL (4.00-5.50); RED CELL DISTRIBUTION WIDTH 15.5 % (11.0-15.5); WHITE BLOOD COUNT (AUTO) 6.5 K/uL (4.8-10.8)
[2023-03-28 06:14] LABS: HEMATOCRIT 20.5 % (36-48)
[2023-03-28 06:24] LABS: INR 1.54 (0.85-1.15); PROTHROMBIN TIME 17.4 SEC (9.6-11.6)
[2023-03-28 06:40] LABS: ALBUMIN 2.7 g/dL (3.5-5.0); CREATININE 3.2 mg/dL (0.5-1.5); TOTAL PROTEIN, SERUM 5.8 g/dL (6.0-8.3)
[2023-03-28] MEDS: TACROLIMUS 1 MG CAPSULE PO SCH (09:00)
[2023-03-28] MEDS: ISOSORBIDE MONO 30MG SR TAB PO SCH (09:00)
[2023-03-28] MEDS ORDERED: PROPOFOL 10 MG/ML 20ML VIAL IV ONE (09:26)
[2023-03-28] MEDS ORDERED: LIDOCAINE HCL 1% 20 ML VIAL ONE (09:26)
[2023-03-28] MEDS: PANTOPRAZOLE 40 MG/VIAL IVP SCH ×2 (10:41→20:29)
[2023-03-28] MEDS: HYDRALAZINE 25MG TABLET PO SCH ×3 (10:41→20:39)
[2023-03-28] MEDS: PREDNISONE 5 MG TABLET PO SCH (10:41)
[2023-03-28] MEDS: METOPROLOL SUCCINATE 50 MG TAB.SR.24H PO SCH ×2 (10:41→20:29)
[2023-03-28] MEDS: SODIUM BICARBONATE 650 MG TAB PO SCH ×2 (10:41→20:29)
[2023-03-28] MEDS: ATORVASTATIN 40 MG TABLET PO SCH (20:38)
[2023-03-29 03:55] VITALS: BP 140/41; PULSE 110; RESP 18
[2023-03-29] MEDS: LEVOTHYROXINE 25 MCG TABLET PO SCH (06:24)
[2023-03-29] MEDS: LEVOTHYROXINE 112 MCG TABLET PO SCH (06:24)
[2023-03-29 06:40] LABS: BASOPHILS % (AUTO) 0.4 % (0.0-5.0); EOSINOPHILS % (AUTO) 1.6 % (0.0-8.0); HEMATOCRIT 23.7 % (36-48); LYMPHOCYTES % (AUTO) 12.1 % (21.0-51.0); MEAN CORPUSCULAR HEMOGLOBIN 28.6 pg (27.0-33.0); MEAN CORPUSCULAR HGB CONC 32.1 g/dL (32.0-36.0); MEAN CORPUSCULAR VOLUME 89.1 fL (79-99); MONOCYTES % (AUTO) 10.3 % (3.0-13.0); NEUTROPHILS % (AUTO) 74.4 % (40.0-77.0); PLATELET COUNT (AUTO) 67 K/uL (130-400); RED BLOOD CELL COUNT(AUTO) 2.66 MIL/uL (4.00-5.50); RED CELL DISTRIBUTION WIDTH 17.9 % (11.0-15.5)
[2023-03-29 06:55] LABS: CREATININE 3.3 mg/dL (0.5-1.5); POTASSIUM 4.4 mmol/L (3.5-5.1)
[2023-03-29 08:00] VITALS: BP 160/86; PULSE 60; RESP 18; O2SAT 100
[2023-03-29] MEDS: SODIUM BICARBONATE 650 MG TAB PO SCH ×2 (08:51→20:52)
[2023-03-29] MEDS: ISOSORBIDE MONO 30MG SR TAB PO SCH (08:52)
[2023-03-29] MEDS: TACROLIMUS 1 MG CAPSULE PO SCH ×2 (08:52→20:52)
[2023-03-29] MEDS: PREDNISONE 5 MG TABLET PO SCH (08:52)
[2023-03-29] MEDS: METOPROLOL SUCCINATE 50 MG TAB.SR.24H PO SCH ×2 (08:52→20:52)
[2023-03-29] MEDS: HYDRALAZINE 25MG TABLET PO SCH ×3 (08:52→20:55)
[2023-03-29] MEDS: PANTOPRAZOLE 40 MG/VIAL IVP SCH ×2 (08:53→20:52)
[2023-03-29 12:00] VITALS: BP 146/61; PULSE 68; RESP 18
[2023-03-29 12:11] LABS: INR 1.35 (0.85-1.15); PROTHROMBIN TIME 15.4 SEC (9.6-11.6)
[2023-03-29 16:00] VITALS: BP 152/72; PULSE 86; RESP 18
[2023-03-29 20:00] VITALS: O2SAT 96
[2023-03-29] MEDS: ATORVASTATIN 40 MG TABLET PO SCH (20:55)
[2023-03-29 20:56] VITALS: BP 146/59; PULSE 60; RESP 18
[2023-03-30] VITALS (7 sets, daily range): BP systolic 126–176; BP diastolic 51–75; PULSE 59–82; RESP 18–20; O2SAT 96–100
[2023-03-30] MEDS: LEVOTHYROXINE 25 MCG TABLET PO SCH (07:30)
[2023-03-30] MEDS: LEVOTHYROXINE 112 MCG TABLET PO SCH (07:30)
[2023-03-30 07:48] LABS: HEMATOCRIT 25.1 % (36-48); MEAN CORPUSCULAR HEMOGLOBIN 28.7 pg (27.0-33.0); MEAN CORPUSCULAR HGB CONC 32.3 g/dL (32.0-36.0); PLATELET COUNT (AUTO) 74 K/uL (130-400); RED BLOOD CELL COUNT(AUTO) 2.82 MIL/uL (4.00-5.50); RED CELL DISTRIBUTION WIDTH 18.2 % (11.0-15.5); WHITE BLOOD COUNT (AUTO) 5.8 K/uL (4.8-10.8)
[2023-03-30 07:55] LABS: CREATININE 3.5 mg/dL (0.5-1.5); POTASSIUM 4.3 mmol/L (3.5-5.1)
[2023-03-30] MEDS: METOPROLOL SUCCINATE 50 MG TAB.SR.24H PO SCH ×2 (08:50→21:15)
[2023-03-30] MEDS: TACROLIMUS 1 MG CAPSULE PO SCH ×2 (08:50→21:16)
[2023-03-30] MEDS: PREDNISONE 5 MG TABLET PO SCH (08:50)
[2023-03-30] MEDS: ISOSORBIDE MONO 30MG SR TAB PO SCH (08:50)
[2023-03-30] MEDS: PANTOPRAZOLE 40 MG/VIAL IVP SCH ×2 (08:50→21:27)
[2023-03-30] MEDS: HYDRALAZINE 25MG TABLET PO SCH ×3 (08:50→21:16)
[2023-03-30] MEDS: SODIUM BICARBONATE 650 MG TAB PO SCH ×2 (08:50→21:15)
[2023-03-30 09:30] LABS: INR 1.28 (0.85-1.15); PROTHROMBIN TIME 14.6 SEC (9.6-11.6)
[2023-03-30 09:32] LABS: PARTIAL THROMBOPLASTIN TIME 33.7 SEC (26.3-35.5)
[2023-03-30] MEDS: HEPARIN 25,000 UNITS/250ML D5W 250 ML IV SCH (15:22)
[2023-03-30] MEDS: ATORVASTATIN 40 MG TABLET PO SCH (21:00)
[2023-03-31 03:30] VITALS: BP 147/61; PULSE 65; RESP 18
[2023-03-31 03:45] LABS: BASOPHILS % (AUTO) 0.4 % (0.0-5.0); EOSINOPHILS % (AUTO) 1.5 % (0.0-8.0); HEMATOCRIT 25.1 % (36-48); LYMPHOCYTES % (AUTO) 12.6 % (21.0-51.0); MEAN CORPUSCULAR HEMOGLOBIN 28.7 pg (27.0-33.0); MEAN CORPUSCULAR HGB CONC 31.9 g/dL (32.0-36.0); MONOCYTES % (AUTO) 12.6 % (3.0-13.0); NEUTROPHILS % (AUTO) 71.8 % (40.0-77.0); PLATELET COUNT (AUTO) 62 K/uL (130-400); RED BLOOD CELL COUNT(AUTO) 2.79 MIL/uL (4.00-5.50); WHITE BLOOD COUNT (AUTO) 4.7 K/uL (4.8-10.8)
[2023-03-31] MEDS: LEVOTHYROXINE 25 MCG TABLET PO SCH (07:36)
[2023-03-31] MEDS: LEVOTHYROXINE 112 MCG TABLET PO SCH (07:36)
[2023-03-31 08:00] VITALS: BP 164/77; PULSE 61; RESP 18; O2SAT 96
[2023-03-31] MEDS: HEPARIN 25,000 UNITS/250ML D5W 250 ML IV SCH ×4 (08:00→20:48)
[2023-03-31] MEDS: SODIUM BICARBONATE 650 MG TAB PO SCH ×2 (09:07→20:41)
[2023-03-31] MEDS: HYDRALAZINE 25MG TABLET PO SCH ×3 (09:07→20:41)
[2023-03-31] MEDS: PANTOPRAZOLE 40 MG/VIAL IVP SCH ×2 (09:07→20:41)
[2023-03-31] MEDS: METOPROLOL SUCCINATE 50 MG TAB.SR.24H PO SCH ×2 (09:07→20:41)
[2023-03-31] MEDS: ISOSORBIDE MONO 30MG SR TAB PO SCH (09:08)
[2023-03-31] MEDS: PREDNISONE 5 MG TABLET PO SCH (09:08)
[2023-03-31] MEDS: TACROLIMUS 1 MG CAPSULE PO SCH ×2 (09:08→20:41)
[2023-03-31] MEDS ORDERED: FUROSEMIDE 20MG VIAL IV ONE (10:00)
[2023-03-31 10:04] LABS: HEMOGLOBIN A1C 5.5 % (4.0-6.0)
[2023-03-31 10:38] LABS: INR 1.21 (0.85-1.15); PROTHROMBIN TIME 13.9 SEC (9.6-11.6)
[2023-03-31 11:01] LABS: PARTIAL THROMBOPLASTIN TIME > 139.0 SEC (26.3-35.5)
[2023-03-31 12:00] VITALS: BP 153/67; PULSE 65; RESP 20
[2023-03-31 12:21] LABS: CHOLESTEROL 94 mg/dL (<200); HDL CHOLESTEROL 28 mg/dL (35-85); LDL DIRECT 55 mg/dL (0-99); TRIGLYCERIDES 71 mg/dL (30-200)
[2023-03-31 15:18] LABS: INR 1.18 (0.85-1.15); PROTHROMBIN TIME 13.5 SEC (9.6-11.6)
[2023-03-31 16:00] VITALS: BP 139/57; PULSE 63; RESP 18
[2023-03-31 20:00] VITALS: BP 160/74; PULSE 69; RESP 18; O2SAT 97
[2023-03-31] MEDS: ATORVASTATIN 40 MG TABLET PO SCH (20:42)
[2023-03-31 22:06] LABS: INR 1.14 (0.85-1.15); PROTHROMBIN TIME 13.1 SEC (9.6-11.6)
[2023-03-31 22:07] LABS: PARTIAL THROMBOPLASTIN TIME 59.5 SEC (26.3-35.5)
[2023-04-01] VITALS (8 sets, daily range): BP systolic 122–172; BP diastolic 54–80; PULSE 57–71; RESP 18–20; O2SAT 94–97
[2023-04-01] MEDS: HEPARIN 25,000 UNITS/250ML D5W 250 ML IV SCH ×4 (01:31→20:00)
[2023-04-01 03:50] LABS: CREATININE 3.6 mg/dL (0.5-1.5); POTASSIUM 4.8 mmol/L (3.5-5.1)
[2023-04-01] MEDS: LEVOTHYROXINE 25 MCG TABLET PO SCH (06:33)
[2023-04-01] MEDS: LEVOTHYROXINE 112 MCG TABLET PO SCH (06:33)
[2023-04-01 07:38] LABS: BASOPHILS % (AUTO) 0.4 % (0.0-5.0); EOSINOPHILS % (AUTO) 2.2 % (0.0-8.0); LYMPHOCYTES % (AUTO) 13.2 % (21.0-51.0); MEAN CORPUSCULAR HEMOGLOBIN 28.8 pg (27.0-33.0); MEAN CORPUSCULAR HGB CONC 32.1 g/dL (32.0-36.0); MEAN CORPUSCULAR VOLUME 89.9 fL (79-99); MONOCYTES % (AUTO) 13.2 % (3.0-13.0); NEUTROPHILS % (AUTO) 70.3 % (40.0-77.0); PLATELET COUNT (AUTO) 64 K/uL (130-400); RED BLOOD CELL COUNT(AUTO) 2.67 MIL/uL (4.00-5.50); RED CELL DISTRIBUTION WIDTH 18.3 % (11.0-15.5); WHITE BLOOD COUNT (AUTO) 4.5 K/uL (4.8-10.8)
[2023-04-01 07:49] LABS: ALBUMIN 2.7 g/dL (3.5-5.0); TOTAL PROTEIN, SERUM 5.4 g/dL (6.0-8.3)
[2023-04-01] MEDS: PANTOPRAZOLE 40 MG/VIAL IVP SCH ×2 (08:44→20:56)
[2023-04-01] MEDS: FUROSEMIDE 20MG VIAL IV SCH ×2 (08:45→20:59)
[2023-04-01] MEDS: EPOETIN ALFA-EPBX (NON-ESRD) 10,000 UNIT/ML VIAL SQ SCH (08:45)
[2023-04-01] MEDS: HYDRALAZINE 25MG TABLET PO SCH ×3 (08:46→20:58)
[2023-04-01] MEDS: PREDNISONE 5 MG TABLET PO SCH (08:46)
[2023-04-01] MEDS: TACROLIMUS 1 MG CAPSULE PO SCH ×2 (08:47→20:58)
[2023-04-01] MEDS: METOPROLOL SUCCINATE 50 MG TAB.SR.24H PO SCH ×2 (08:47→20:58)
[2023-04-01] MEDS: ISOSORBIDE MONO 30MG SR TAB PO SCH (08:47)
[2023-04-01] MEDS: SODIUM BICARBONATE 650 MG TAB PO SCH ×2 (08:47→20:58)
[2023-04-01] MEDS ORDERED: PHARMACY COMMUNICATION MISC SCH (10:30)
[2023-04-01] MEDS: WARFARIN SODIUM 7.5 MG TAB PO SCH (16:26)
[2023-04-01] MEDS: ATORVASTATIN 40 MG TABLET PO SCH (20:59)
[2023-04-02] VITALS (7 sets, daily range): BP systolic 128–176; BP diastolic 49–62; PULSE 60–71; RESP 16–18; O2SAT 97–98
[2023-04-02] MEDS: HEPARIN 25,000 UNITS/250ML D5W 250 ML IV SCH ×4 (01:09→17:04)
[2023-04-02 03:50] LABS: INR 1.11 (0.85-1.15); PROTHROMBIN TIME 12.8 SEC (9.6-11.6)
[2023-04-02 03:51] LABS: PARTIAL THROMBOPLASTIN TIME 54.8 SEC (26.3-35.5)
[2023-04-02] MEDS: LEVOTHYROXINE 112 MCG TABLET PO SCH (06:18)
[2023-04-02] MEDS: LEVOTHYROXINE 25 MCG TABLET PO SCH (06:18)
[2023-04-02] MEDS: SODIUM BICARBONATE 650 MG TAB PO SCH ×2 (08:53→21:46)
[2023-04-02] MEDS: FUROSEMIDE 20MG VIAL IV SCH ×2 (08:53→21:46)
[2023-04-02] MEDS: PANTOPRAZOLE 40 MG/VIAL IVP SCH ×2 (08:53→21:45)
[2023-04-02] MEDS: ISOSORBIDE MONO 30MG SR TAB PO SCH (08:53)
[2023-04-02] MEDS: HYDRALAZINE 25MG TABLET PO SCH ×3 (08:54→21:46)
[2023-04-02] MEDS: PREDNISONE 5 MG TABLET PO SCH (08:54)
[2023-04-02] MEDS: TACROLIMUS 1 MG CAPSULE PO SCH ×2 (08:54→21:46)
[2023-04-02] MEDS: METOPROLOL SUCCINATE 50 MG TAB.SR.24H PO SCH ×2 (08:54→21:47)
[2023-04-02] MEDS: EPOETIN ALFA-EPBX (NON-ESRD) 10,000 UNIT/ML VIAL SQ SCH (09:00)
[2023-04-02] MEDS: WARFARIN SODIUM 7.5 MG TAB PO SCH (16:39)
[2023-04-02] MEDS: ATORVASTATIN 40 MG TABLET PO SCH ×2 (21:46→21:55)
[2023-04-03] VITALS (7 sets, daily range): BP systolic 147–173; BP diastolic 28–79; PULSE 58–78; RESP 16–18; O2SAT 97
[2023-04-03] MEDS: HEPARIN 25,000 UNITS/250ML D5W 250 ML IV SCH ×4 (02:00→20:00)
[2023-04-03 03:49] LABS: BASOPHILS % (AUTO) 0.5 % (0.0-5.0); EOSINOPHILS % (AUTO) 2.2 % (0.0-8.0); HEMATOCRIT 24.5 % (36-48); LYMPHOCYTES % (AUTO) 18.2 % (21.0-51.0); MEAN CORPUSCULAR HGB CONC 32.2 g/dL (32.0-36.0); MEAN CORPUSCULAR VOLUME 90.1 fL (79-99); MONOCYTES % (AUTO) 15.4 % (3.0-13.0); NEUTROPHILS % (AUTO) 62.7 % (40.0-77.0); PLATELET COUNT (AUTO) 72 K/uL (130-400); RED BLOOD CELL COUNT(AUTO) 2.72 MIL/uL (4.00-5.50); RED CELL DISTRIBUTION WIDTH 18.6 % (11.0-15.5)
[2023-04-03 03:56] LABS: INR 1.45 (0.85-1.15); PROTHROMBIN TIME 16.4 SEC (9.6-11.6)
[2023-04-03 03:58] LABS: PARTIAL THROMBOPLASTIN TIME 51.8 SEC (26.3-35.5)
[2023-04-03] MEDS: LEVOTHYROXINE 25 MCG TABLET PO SCH (05:46)
[2023-04-03] MEDS: LEVOTHYROXINE 112 MCG TABLET PO SCH (05:46)
[2023-04-03 07:56] LABS: CREATININE 4.2 mg/dL (0.5-1.5); POTASSIUM 4.2 mmol/L (3.5-5.1)
[2023-04-03] MEDS ORDERED: FUROSEMIDE 20MG VIAL IV SCH (08:00)
[2023-04-03] MEDS: PANTOPRAZOLE 40 MG/VIAL IVP SCH ×2 (09:42→22:20)
[2023-04-03] MEDS: ISOSORBIDE MONO 30MG SR TAB PO SCH (09:43)
[2023-04-03] MEDS: FUROSEMIDE 20MG VIAL IV SCH ×2 (09:43→22:20)
[2023-04-03] MEDS: SODIUM BICARBONATE 650 MG TAB PO SCH ×2 (09:43→22:21)
[2023-04-03] MEDS: METOPROLOL SUCCINATE 50 MG TAB.SR.24H PO SCH ×2 (09:44→22:21)
[2023-04-03] MEDS: HYDRALAZINE 25MG TABLET PO SCH ×3 (09:44→22:21)
[2023-04-03] MEDS: TACROLIMUS 1 MG CAPSULE PO SCH ×2 (09:44→22:21)
[2023-04-03] MEDS: PREDNISONE 5 MG TABLET PO SCH (09:44)
[2023-04-03] MEDS: WARFARIN SODIUM 7.5 MG TAB PO SCH (16:30)
[2023-04-04] MEDS: HEPARIN 25,000 UNITS/250ML D5W 250 ML IV SCH (01:55)
[2023-04-04 04:13] VITALS: BP 165/51; PULSE 57; RESP 18
[2023-04-04] MEDS: LEVOTHYROXINE 25 MCG TABLET PO SCH (05:31)
[2023-04-04] MEDS: LEVOTHYROXINE 112 MCG TABLET PO SCH (05:31)
[2023-04-04 06:21] LABS: INR 2.54 (0.85-1.15); PROTHROMBIN TIME 27.7 SEC (9.6-11.6)
[2023-04-04 06:22] LABS: PARTIAL THROMBOPLASTIN TIME 59.8 SEC (26.3-35.5)
[2023-04-04] MEDS ORDERED: ATOR40TA69 PO (07:39)
[2023-04-04] MEDS ORDERED: OMEP40CA21 PO (07:53)
[2023-04-04 08:00] VITALS: BP 170/86; PULSE 64; RESP 18; O2SAT 94
[2023-04-04] MEDS: METOPROLOL SUCCINATE 50 MG TAB.SR.24H PO SCH (08:23)
[2023-04-04] MEDS: TACROLIMUS 1 MG CAPSULE PO SCH (08:23)
[2023-04-04] MEDS: FUROSEMIDE 20MG VIAL IV SCH (08:23)
[2023-04-04] MEDS: PANTOPRAZOLE 40 MG/VIAL IVP SCH (08:23)
[2023-04-04] MEDS: SODIUM BICARBONATE 650 MG TAB PO SCH (08:23)
[2023-04-04] MEDS: ISOSORBIDE MONO 30MG SR TAB PO SCH (08:23)
[2023-04-04] MEDS: HYDRALAZINE 25MG TABLET PO SCH (08:24)
[2023-04-04] MEDS: PREDNISONE 5 MG TABLET PO SCH (08:25)
[2023-04-04] MEDS ORDERED: HEPARIN PF LOCK 500 UNIT/5ML IV SCH (10:30)
[2023-04-04] MEDS ORDERED: WARFARIN SODIUM 5 MG TAB PO SCH (17:00)
== END 2023-04-04 11:09 | disposition home or self-care (01) | DRG 368 ==
LOC: EDH 12:41 → EDHIP 16:34 → 4CH 03-26 02:14
PROVIDERS: ADMIT Hospitalist; ATTEND Hospitalist
PROC: 30233N1 Transfusion of Nonautologous Red Blood Cells into Peripheral Vein, Percutaneous Approach (ICD-10-PCS; 2023-03-25)
PROC: 0W3P8ZZ Control Bleeding in Gastrointestinal Tract, Via Natural or Artificial Opening Endoscopic (ICD-10-PCS; principal; 2023-03-28)
PROC: 30233K1 Transfusion of Nonautologous Frozen Plasma into Peripheral Vein, Percutaneous Approach (ICD-10-PCS; 2023-03-28)
DX: K22.6 Gastro-esophageal laceration-hemorrhage syndrome (principal); I21.4 Non-ST elevation (NSTEMI) myocardial infarction; J96.01 Acute respiratory failure with hypoxia; D62 Acute posthemorrhagic anemia; I13.0 Hypertensive heart and chronic kidney disease with heart failure and stage 1 through stage 4 chronic kidney disease, or unspecified chronic kidney disease; N17.9 Acute kidney failure, unspecified; T86.19 Other complication of kidney transplant; E87.20 Acidosis, unspecified; N18.4 Chronic kidney disease, stage 4 (severe); Z20.822 Contact with and (suspected) exposure to COVID-19; D69.6 Thrombocytopenia, unspecified; I27.20 Pulmonary hypertension, unspecified; I48.0 Paroxysmal atrial fibrillation; I50.9 Heart failure, unspecified; I73.9 Peripheral vascular disease, unspecified; E03.9 Hypothyroidism, unspecified; I25.10 Atherosclerotic heart disease of native coronary artery without angina pectoris; Z53.29 Procedure and treatment not carried out because of patient's decision for other reasons; Y83.0 Surgical operation with transplant of whole organ as the cause of abnormal reaction of the patient, or of later complication, without mention of misadventure at the time of the procedure; Z79.01 Long term (current) use of anticoagulants; Z79.899 Other long term (current) drug therapy; Z82.49 Family history of ischemic heart disease and other diseases of the circulatory system; Z91.148 Patient's other noncompliance with medication regimen for other reason; Z95.1 Presence of aortocoronary bypass graft; Z95.2 Presence of prosthetic heart valve
CPT/HCPCS: 36415; 36430; 43255; 71045; 80048; 80053; 80061; 80197; 81001; 82270; 82550; 82948; 83036; 83605; 83735; 83874; 83880; 84484; 85014; 85018; 85025; 85027; 85610; 85730; 86850; 86900; 86901; 86923; 86927; 87635; 93005; 93306; A4606; C9113; G0378; J1642; J1644; J1650; J1940; J2405; J2704; J7030; J7507; J7512; P9016; P9017; Q0163; A4215; A4216; A4222; A4223; A4620; A4649; A7002; J3490; Q5106

== ENCOUNTER → 2024-01-20 | Outpatient (CLI) | payer MEDICARE ==
[~2024-01-20] MED LIST changes: +FURO20TA4 PO; +HYDR25TA67 PO; +ISOS30TA11 PO; +LEVO137T2 PO; +LIDOCAINE HCL 4% LTA SOL 4 ML VIAL TP ONE; +METO-409 PO; -METO25TA3 PO; -MYCO360T PO; +PRED1 PO; -PRED2.5T PO; +PROCRIT SQ; +TACR1 PO; -TACR1CAP18 PO; +WARF-57 PO; -WARF2.5T85 PO
== END | disposition home or self-care (01) ==
LOC: WHH 08:22
PROVIDERS: ATTEND Nurse Practitioner Family
DX: T81.31XA Disruption of external operation (surgical) wound, not elsewhere classified, initial encounter (principal); S41.102A Unspecified open wound of left upper arm, initial encounter; M32.9 Systemic lupus erythematosus, unspecified; R26.9 Unspecified abnormalities of gait and mobility; Z79.01 Long term (current) use of anticoagulants; X58.XXXA Exposure to other specified factors, initial encounter; Y83.8 Other surgical procedures as the cause of abnormal reaction of the patient, or of later complication, without mention of misadventure at the time of the procedure; Y92.89 Other specified places as the place of occurrence of the external cause; Y93.89 Activity, other specified; Y99.8 Other external cause status
CPT/HCPCS: 11042; 11045; A6248; A4450; A6260

== ENCOUNTER → 2024-01-27 | Outpatient (CLI) | payer MEDICARE | END | disposition home or self-care (01) | LOC: WHH 08:26 | PROVIDERS: ATTEND Nurse Practitioner Family | DX: T81.31XD Disruption of external operation (surgical) wound, not elsewhere classified, subsequent encounter (principal); S41.102D Unspecified open wound of left upper arm, subsequent encounter; I13.2 Hypertensive heart and chronic kidney disease with heart failure and with stage 5 chronic kidney disease, or end stage renal disease; N18.5 Chronic kidney disease, stage 5; E03.9 Hypothyroidism, unspecified; I50.89 Other heart failure; I25.10 Atherosclerotic heart disease of native coronary artery without angina pectoris; M32.9 Systemic lupus erythematosus, unspecified; R26.9 Unspecified abnormalities of gait and mobility; Z79.01 Long term (current) use of anticoagulants; Z99.2 Dependence on renal dialysis; Z79.899 Other long term (current) drug therapy; X58.XXXD Exposure to other specified factors, subsequent encounter; Y83.8 Other surgical procedures as the cause of abnormal reaction of the patient, or of later complication, without mention of misadventure at the time of the procedure | CPT/HCPCS: G0463 ==

== ENCOUNTER → 2024-02-03 | Outpatient (CLI) | payer MEDICARE | END | disposition home or self-care (01) | LOC: WHH 08:57 | PROVIDERS: ATTEND Nurse Practitioner Family | DX: T87.81 Dehiscence of amputation stump (principal); S41.102D Unspecified open wound of left upper arm, subsequent encounter; I13.2 Hypertensive heart and chronic kidney disease with heart failure and with stage 5 chronic kidney disease, or end stage renal disease; N18.5 Chronic kidney disease, stage 5; E03.9 Hypothyroidism, unspecified; I50.89 Other heart failure; I25.10 Atherosclerotic heart disease of native coronary artery without angina pectoris; M32.9 Systemic lupus erythematosus, unspecified; R26.9 Unspecified abnormalities of gait and mobility; Z79.01 Long term (current) use of anticoagulants; Z99.2 Dependence on renal dialysis; Z79.899 Other long term (current) drug therapy; X58.XXXD Exposure to other specified factors, subsequent encounter; Y83.5 Amputation of limb(s) as the cause of abnormal reaction of the patient, or of later complication, without mention of misadventure at the time of the procedure | CPT/HCPCS: 11042; 11045; A6260 ==

== ENCOUNTER → 2024-02-10 | Outpatient (CLI) | payer MEDICARE ==
[~2024-02-10] MED LIST changes: -LIDOCAINE HCL 4% LTA SOL 4 ML VIAL TP ONE
== END | disposition home or self-care (01) ==
LOC: RAH 12:13
PROVIDERS: ATTEND Internal Medicine Nephrology
DX: N26.1 Atrophy of kidney (terminal) (principal); I51.7 Cardiomegaly; I70.0 Atherosclerosis of aorta; R18.8 Other ascites; Z94.0 Kidney transplant status
CPT/HCPCS: 74176

== ENCOUNTER → 2024-02-10 | Outpatient (CLI) | payer MEDICARE ==
[~2024-02-10] MED LIST changes: +LIDOCAINE HCL 4% LTA SOL 4 ML VIAL TP ONE
== END | disposition home or self-care (01) ==
LOC: WHH 08:56
PROVIDERS: ATTEND Nurse Practitioner Family
DX: T81.31XD Disruption of external operation (surgical) wound, not elsewhere classified, subsequent encounter (principal); S41.102D Unspecified open wound of left upper arm, subsequent encounter; I13.2 Hypertensive heart and chronic kidney disease with heart failure and with stage 5 chronic kidney disease, or end stage renal disease; N18.5 Chronic kidney disease, stage 5; I50.89 Other heart failure; E03.9 Hypothyroidism, unspecified; I25.10 Atherosclerotic heart disease of native coronary artery without angina pectoris; M32.9 Systemic lupus erythematosus, unspecified; R26.9 Unspecified abnormalities of gait and mobility; Z79.01 Long term (current) use of anticoagulants; Z99.2 Dependence on renal dialysis; Z79.899 Other long term (current) drug therapy; X58.XXXD Exposure to other specified factors, subsequent encounter; Y83.8 Other surgical procedures as the cause of abnormal reaction of the patient, or of later complication, without mention of misadventure at the time of the procedure
CPT/HCPCS: 11042; 11045; A6260

== ENCOUNTER → 2024-02-17 | Outpatient (CLI) | payer MEDICARE | END | disposition home or self-care (01) | LOC: WHH 09:02 | PROVIDERS: ATTEND Nurse Practitioner Family | DX: T81.31XD Disruption of external operation (surgical) wound, not elsewhere classified, subsequent encounter (principal); S41.102D Unspecified open wound of left upper arm, subsequent encounter; I13.2 Hypertensive heart and chronic kidney disease with heart failure and with stage 5 chronic kidney disease, or end stage renal disease; N18.5 Chronic kidney disease, stage 5; E03.9 Hypothyroidism, unspecified; I50.89 Other heart failure; I25.10 Atherosclerotic heart disease of native coronary artery without angina pectoris; M32.9 Systemic lupus erythematosus, unspecified; R26.9 Unspecified abnormalities of gait and mobility; Z79.01 Long term (current) use of anticoagulants; Z79.899 Other long term (current) drug therapy; X58.XXXD Exposure to other specified factors, subsequent encounter; Y83.8 Other surgical procedures as the cause of abnormal reaction of the patient, or of later complication, without mention of misadventure at the time of the procedure | CPT/HCPCS: 11042; 11045; A6209 ×2; A6260 ==

== ENCOUNTER → 2024-02-24 | Outpatient (CLI) | payer MEDICARE | END | disposition home or self-care (01) | LOC: WHH 09:07 | PROVIDERS: ATTEND Nurse Practitioner Family | DX: T81.31XD Disruption of external operation (surgical) wound, not elsewhere classified, subsequent encounter (principal); S41.102D Unspecified open wound of left upper arm, subsequent encounter; I13.2 Hypertensive heart and chronic kidney disease with heart failure and with stage 5 chronic kidney disease, or end stage renal disease; N18.5 Chronic kidney disease, stage 5; I50.89 Other heart failure; I25.10 Atherosclerotic heart disease of native coronary artery without angina pectoris; E03.9 Hypothyroidism, unspecified; R26.9 Unspecified abnormalities of gait and mobility; M32.9 Systemic lupus erythematosus, unspecified; Z79.01 Long term (current) use of anticoagulants; Z79.899 Other long term (current) drug therapy; X58.XXXD Exposure to other specified factors, subsequent encounter; Y83.8 Other surgical procedures as the cause of abnormal reaction of the patient, or of later complication, without mention of misadventure at the time of the procedure | CPT/HCPCS: G0463; A6209; A4450; A6260 ==

== ENCOUNTER → 2024-03-04 | Outpatient (CLI) | payer MEDICARE | END | disposition home or self-care (01) | LOC: WHH 08:40 | PROVIDERS: ATTEND Nurse Practitioner Family | DX: T81.31XD Disruption of external operation (surgical) wound, not elsewhere classified, subsequent encounter (principal); S41.102D Unspecified open wound of left upper arm, subsequent encounter; I13.2 Hypertensive heart and chronic kidney disease with heart failure and with stage 5 chronic kidney disease, or end stage renal disease; N18.5 Chronic kidney disease, stage 5; I50.89 Other heart failure; I25.10 Atherosclerotic heart disease of native coronary artery without angina pectoris; E03.9 Hypothyroidism, unspecified; R26.9 Unspecified abnormalities of gait and mobility; M32.9 Systemic lupus erythematosus, unspecified; Z79.01 Long term (current) use of anticoagulants; Z79.899 Other long term (current) drug therapy; X58.XXXD Exposure to other specified factors, subsequent encounter; Y83.8 Other surgical procedures as the cause of abnormal reaction of the patient, or of later complication, without mention of misadventure at the time of the procedure | CPT/HCPCS: G0463; A6022 ==

== ENCOUNTER → 2024-03-18 | Outpatient (CLI) | payer MEDICARE | END | disposition home or self-care (01) | LOC: WHH 08:12 | PROVIDERS: ATTEND Nurse Practitioner Family | DX: T81.31XD Disruption of external operation (surgical) wound, not elsewhere classified, subsequent encounter (principal); S41.102D Unspecified open wound of left upper arm, subsequent encounter; I13.2 Hypertensive heart and chronic kidney disease with heart failure and with stage 5 chronic kidney disease, or end stage renal disease; N18.5 Chronic kidney disease, stage 5; I50.89 Other heart failure; I25.10 Atherosclerotic heart disease of native coronary artery without angina pectoris; E03.9 Hypothyroidism, unspecified; R26.9 Unspecified abnormalities of gait and mobility; M32.9 Systemic lupus erythematosus, unspecified; Z79.01 Long term (current) use of anticoagulants; Z79.899 Other long term (current) drug therapy; X58.XXXD Exposure to other specified factors, subsequent encounter; Y83.8 Other surgical procedures as the cause of abnormal reaction of the patient, or of later complication, without mention of misadventure at the time of the procedure | CPT/HCPCS: G0463; A6022; A4450; A6260 ==

== ENCOUNTER → 2024-03-30 | Outpatient (CLI) | payer MEDICARE ==
[~2024-03-30] MED LIST changes: -LIDOCAINE HCL 4% LTA SOL 4 ML VIAL TP ONE
== END | disposition home or self-care (01) ==
LOC: WHH 08:13
PROVIDERS: ATTEND Family Medicine
DX: T81.31XD Disruption of external operation (surgical) wound, not elsewhere classified, subsequent encounter (principal); S41.102D Unspecified open wound of left upper arm, subsequent encounter; I13.2 Hypertensive heart and chronic kidney disease with heart failure and with stage 5 chronic kidney disease, or end stage renal disease; N18.5 Chronic kidney disease, stage 5; I50.89 Other heart failure; I25.10 Atherosclerotic heart disease of native coronary artery without angina pectoris; E03.9 Hypothyroidism, unspecified; R26.9 Unspecified abnormalities of gait and mobility; M32.9 Systemic lupus erythematosus, unspecified; Z79.01 Long term (current) use of anticoagulants; Z79.899 Other long term (current) drug therapy; X58.XXXD Exposure to other specified factors, subsequent encounter; Y83.8 Other surgical procedures as the cause of abnormal reaction of the patient, or of later complication, without mention of misadventure at the time of the procedure
CPT/HCPCS: G0463; A6250

== ENCOUNTER 2024-09-09 18:37 | Emergency (ER) | payer MEDICARE ==
[~2024-09-09] VITALS: Ht 162.6 cm; Wt 70.3 kg
--- NOTE | 2024-09-09 20:11 | HMCIMG ---
US ARTERIAL UNILA LOW EXT DUPL REASON: right lower leg cold s/p arterial stent COMPARISON: None TECHNIQUE: Left leg return Doppler evaluation was performed with spectral analysis and color flow imaging. FINDINGS: There is a stent visible in the superficial femoral artery. There are triphasic waveforms common femoral and proximal superficial femoral artery. Mid and distal SFA are biphasic as is the popliteal. There is a severe stenosis of the distal popliteal, 80% or greater. There is severe distal inflow occlusion, posterior tibial is occluded, but the anterior tibial and dorsalis pedis have markedly damped waveforms with minimal flow velocity. IMPRESSION: 1. Severe stenosis in the distal popliteal, there is marked distal arterial inflow occlusion as described above.
--- NOTE | 2024-09-09 20:13 | HMCIMG ---
US VENOUS DOPPLER UNILATERAL REASON: right lower leg cold s/p arterial stent COMPARISON: None Technique: Right venous doppler ultrasound was performed with spectral analysis and color flow imaging technique. FINDINGS: There is a normal appearance of the common femoral, deep femoral, the profunda femoris and popliteal veins. Proximal calf veins appear normal as well. There is normal response to compression and augmentation. There is no evidence of deep venous thrombosis. IMPRESSION: Normal right lower extremity venous Doppler ultrasound.
--- NOTE | 2024-09-09 21:38 | ERN ---
ED Note History of Present Illness Stated Complaint: RIGHT LEG PAIN/SWELLING Chief Complaint: Lower Extremity Pain/Injury Time Seen by MD: 18:50 Time Seen by Midlevel: 18:50 Dictation: The patient is a 63-year-old female with a history of lupus, kidney transplant, AFib, aortic and mitral mechanical valve on warfarin who presents to the emergency department with complaints of a cold sensation to right foot onset September 08. patient reports that she had a stent done to her right SFA by on Jul. Reports pain with ambulation. But no pain at rest. Allergies: Coded Allergies: Penicillins (Verified Allergy, Unknown, 04/14/20) azithromycin (Verified Allergy, Unknown, 04/14/20) meperidine (Verified Allergy, Unknown, 04/14/20) Home Meds Reported Medications [Procrit] No Conflict Check, SQ AD PRN for ANEMIA 12/30/23 Isosorbide Dinitrate (Isosorbide Dinitrate) 30 Mg Tablet, 30 MG PO TID, TAB 12/30/23 Hydralazine HCl (Hydralazine HCl) 25 Mg Tablet, 75 MG PO TID, TAB 12/30/23 Furosemide (Furosemide) 20 Mg Tablet, 40 MG PO BID, TAB 12/30/23 Tacrolimus Anhydrous (Prograf/Fk-506) 1 Mg Cap, 1 CAP PO DAILY 09/03/23 Warfarin Sodium (Warfarin Sodium) Unknown Strength Tablet, PO DAILY 09/03/23 Prednisone (Deltasone / Orasone) 1 Mg Tab, 4 TAB PO DAILY 09/03/23 Metoprolol Succinate (Metoprolol Succinate) 100 Mg Tab.er.24h, 0.5 TAB PO BID 09/03/23 Levothyroxine Sodium (Levothyroxine Sodium) 137 Mcg Tablet, 137 MCG PO ACBKFST, TAB 03/25/23 Past Medical History Past Medical History: A-Fib, Heart Disease Additional Past Medical Hx: LUPUS, KIDNEY TRANSPLANT Surgical History: Other Surgical History Other: KIDNEY TRANSPLANT, MITRAL AND AORTIC VALVES Family History: CAD, HTN Social History: Negative, Lives with family RN Note Reviewed/Agreed w/PFSH: Yes Review of System Dictation Constitutional: Negative for fever,chills, and weight loss Eyes: Negative for injury, pain,redness, and discharge ENT: Negative for injury,pain or swelling Cardiovascular: Negative for chest pain, palpitations, and edema Respiratory: Negative for shortness of breath, cough, and wheezing, Abdomen/GI: Negative for abdominal pain, nausea, vomiting, diarrhea, and constipation Back: Negative for injury and pain : Negative for injury, bleeding and discharge MS/Extremity: Negative for injury and deformity positive for right foot cold Skin: Negative for rash, and discoloration Neuro: Negative for headache, weakness, numbness, tingling, and seizure Psych: Negative for suicide ideation, homicidal ideation, and hallucinations Initial Vital Sign VS Vital Signs Date Time Temp Pulse Resp B/P (MAP) Pulse Ox O2 Delivery O2 Flow Rate FiO2 09/09/24 19:32 98.1 77 20 146/75 98 Room Air 09/09/24 22:12 0 21 Physical Exam Dictation Vital Signs reviewed General Appearance: Alert, oriented x 3, no acute distress, well developed, nourished. Head and Face: non-traumatic. Eyes: PERRL, pink conjunctivas, eyelid no trauma, anterior chamber with arcus senilis. Ears: Pinnas intact and no signs of trauma or erythema ear canals clear and no discharge TM no erythema Nose: No discharge, no bleeding. Oropharynx: Mouth normal, tongue pink. pharynx clear,no erythema, tonsils no exudates, no abscesses noted, mucous membrane moist Neck: Supple, non-tender, no thyromegaly, no masses, no JVD, no bruits Breast:Deferred Chest:No tenderness, no crepitus, no paradoxical movement, no retractions Lungs:Clear, well-ventilated, symmetric, no rales, no wheezing, no rhonchi, no stridor, good breath sounds bilaterally Heart: Regular rate, regular rhythm, no murmur, no gallops Vascular: no peripheral edema, dorsalis pedis non palpable Abdomen: Soft, positive bowel sounds, nondistended, no guarding, nontender, no rebound, no masses no hepatomegaly, no splenomegaly, no Novak's sign, no hernias. Rectal: Deferred Genital: Deferred Neurological: Normal speech, motor function intact, sensory function intact Musculoskeletal: Neck nontender, full range of motion, back nontender, full range of motion, Extremities: nontender, full range of motion bilateral cool feet, sensation intact, cap refill >3sec, pink Skin: Color pink, dry, no turgor, no rash, no lacerations, no abrasions, no contusions. Lymphatic: Deferred Results (Laboratory/Radiology) Laboratory/Radiology REASON: right lower leg cold s/p arterial stent ORDERING PHYSICIAN: LAURA BONDS PROCEDURE: VENOUS UNI - US VENOUS DOPPLER UNILATERAL US VENOUS DOPPLER UNILATERAL REASON: right lower leg cold s/p arterial stent COMPARISON: None Technique: Right venous doppler ultrasound was performed with spectral analysis and color flow imaging technique. FINDINGS: There is a normal appearance of the common femoral, deep femoral, the profunda femoris and popliteal veins. Proximal calf veins appear normal as well. There is normal response to compression and augmentation. There is no evidence of deep venous thrombosis. IMPRESSION: Normal right lower extremity venous Doppler ultrasound. REASON: right lower leg cold s/p arterial stent ORDERING PHYSICIAN: LAURA BONDS PROCEDURE: ART U LE - US ARTERIAL UNILA LOW EXT DUPL US ARTERIAL UNILA LOW EXT DUPL REASON: right lower leg cold s/p arterial stent COMPARISON: None TECHNIQUE: Left leg return Doppler evaluation was performed with spectral analysis and color flow imaging. FINDINGS: There is a stent visible in the superficial femoral artery. There are triphasic waveforms common femoral and proximal superficial femoral artery. Mid and distal SFA are biphasic as is the popliteal. There is a severe stenosis of the distal popliteal, 80% or greater. There is severe distal inflow occlusion, posterior tibial is occluded, but the anterior tibial and dorsalis pedis have markedly damped waveforms with minimal flow velocity. IMPRESSION: 1. Severe stenosis in the distal popliteal, there is marked distal arterial inflow occlusion as described above. Labs Reviewed?: Yes ED Course ED Course Orders Procedure Category Date Status Time Us Arterial Unila Low US 09/09/24 Resulted Ext Dupl 19:00 Us Venous Doppler US 09/09/24 Resulted Unilateral 19:00 Vital Signs Date Time Temp Pulse Resp B/P (MAP) Pulse Ox O2 Delivery O2 Flow Rate FiO2 09/09/24 22:12 97.7 74 18 144/77 98 Room Air* 0 21 09/09/24 19:32 98.1 77 20 146/75 98 Room Air Medical Decision Making MDM The patient is a 63-year-old female with a history of lupus, kidney transplant, AFib, aortic and mitral mechanical valve on warfarin who presents to the emergency department with complaints of a cold sensation to right foot onset September 08. patient reports that she had a stent done to her right SFA by on Jul. Reports pain with ambulation. But no pain at rest. Patient refused laboratory exams. Ultrasound showed no evidence of DVT, arterial Doppler showed severe stenosis in the distal popliteal and occlusion to the posterior tibial. Spoke to patient's and discussed case with the him. States patient will need reintervention or surgery but for now treat conservatively. Treat for pain and discharged her home. Will call patient tomorrow to schedule an appointment within the next two days. Discharge planning discussed with the patient who agrees to be discharged and reports that at this time she has no pain. Differential diagnosis: PVD, stent failure, DVT Need for hospitalization: Patient does not meet criteria for hospitalization. There are no social concerns with this patient. DX & DISP Disposition: Discharge Departure Impression: Primary Impression: PVD (peripheral vascular disease) Condition: Stable Additional Instructions: Please follow up with , he will call you sometime tomorrow for an appointment FOLLOW-UP WITH PRIMARY CARE PROVIDER IN 1 TO 2 DAYS. TAKE MEDICATIONS DIRECTED HERE IN THE EMERGENCY ROOM. OKAY TO CONTINUE HOME MEDICATIONS UNLESS OTHERWISE DISCUSSED DURING YOUR VISIT IN THE EMERGENCY ROOM TODAY. RETURN TO YOUR NEAREST EMERGENCY ROOM IF SYMPTOMS WORSEN OR IF THERE IS NO IMPROVEMENT. CALL 911 IF YOU NEED IMMEDIATE ASSISTANCE. TAKE TYLENOL NVKH-PSZ-ENADHCK NEEDED AND IF NO CONTRAINDICATIONS ARE PRESENT. INCREASE ORAL HYDRATION. A WOUND CULTURE OR URINE CULTURE WAS ORDERED HERE IN THE EMERGENCY ROOM DEPARTMENT PLEASE FOLLOW-UP WITH PRIMARY CARE PROVIDER AND ADVISE THEM TO GET REPEAT PORTS FROM OUR FACILITY. IF YOU HAD ANY RICHAR WRAP/SPLINTS THAT WERE APPLIED HERE, PLEASE DO NOT REMOVE THEM UNTIL YOU SEE YOUR PRIMARY CARE OR SPECIALTY. Referrals: LUTHER BARBOSA MD (PCP) Time of Disposition: 21:37 I have reviewed the case, and I agree with, Diagnosis and Plan ATTESTATION BY PHYSICIAN I PERFORMED THE SUBSTANTIVE PORTION OF THE VISIT. I HAVE REVIEWED AND PERSONALLY MADE AND APPROVED THE MANAGEMENT PLAN THAT IS DOCUMENTED IN THE NOTE BY MYSELF FOR THE A PP. I ACKNOWLEDGED FOR RESPONSIBILITY FOR THE PATIENT'S MANAGEMENT PLAN. LAURA BONDS Sep 09, 2024 21:37 DA NAIDU MD Sep 11, 2024 19:29
[2024-09-09 22:12] VITALS: BP 144/77; PULSE 74; RESP 18; TEMP 97.7; O2SAT 98
== END 2024-09-09 22:13 | disposition home or self-care (01) ==
LOC: EDH 18:37
DX: I73.9 Peripheral vascular disease, unspecified (principal); M79.604 Pain in right leg; Z79.01 Long term (current) use of anticoagulants; Z79.52 Long term (current) use of systemic steroids; Z79.621 Long term (current) use of calcineurin inhibitor; Z79.899 Other long term (current) drug therapy; Z88.0 Allergy status to penicillin; Z88.1 Allergy status to other antibiotic agents; Z88.5 Allergy status to narcotic agent; Z94.0 Kidney transplant status
CPT/HCPCS: 93926; 93971; 99284

== ENCOUNTER 2024-09-20 12:06 | Emergency (ER) | payer MEDICARE ==
[~2024-09-20] VITALS: Ht 165.1 cm; Wt 68.0 kg
[2024-09-20 12:10] VITALS: TEMP 97.8
--- NOTE | 2024-09-20 12:10 | NUR ---
CODE STROKE: JUST PLACED IN ED BED 7
--- NOTE | 2024-09-20 12:13 | NUR ---
PT TO CT SCAN.
--- NOTE | 2024-09-20 12:27 | NUR ---
PT JUST RETURNED FROM CT SCAN
--- NOTE | 2024-09-20 12:44 | NUR ---
TELE NEURO: MONITOR PLACED AT BEDSIDE ED CART 1
--- NOTE | 2024-09-20 12:46 | NUR ---
TELE NEURO MD CURRENTLY ON MONITOR
--- NOTE | 2024-09-20 12:51 | BSKYNEURO ---
[facility] Procedure Note [facility] Consult Consult [facility] Note # Demographics Consult Type: Acute Stroke Level 1 (0-4.5 hrs) Patient Location: Emergency Room First Name: VASILE Hendrickson Last Name: RIGOBERTO Date of : 1960 Age: 63 Gender: Female Facility: [facility] Time of Initial Page (Central Time): 09/20/2024, 12:43 Time of Return Call (Central Time): 09/20/2024, 12:44 # HPI History: Speaking on phone then feeling confused and dizziness and couldnt speak. Also wavy lines in vision - blurry vision both eyes. Now getting a headache. Suble left facial droop noted by Last Known Normal: 0800cst # Scores Time of exam and NIHSS (Central Time): 09/20/2024, 12:44 Level of Consciousness 1a: [0] = Alert; keenly responsive LOC Questions 1b: [0] = Answers both questions correctly LOC Commands 1c: [0] = Performs both tasks correctly Best Gaze 2: [0] = Normal Visual 3: [0] = No visual loss Facial Palsy 4: [0] = Normal symmetrical movements Motor Arm Left 5a: [0] = No drift Motor Arm Right 5b: [0] = No drift Motor Leg Left 6a: [0] = No drift Motor Leg Right 6b: [0] = No drift Limb Ataxia 7: [0] = Absent Sensory 8: [1] = Exkf-gi-nnrgkenv sensory loss Best Language 9: [0] = No aphasia Dysarthria 10: [0] = Normal Extinction and Inattention 11: [0] = No abnormality NIHSS Total: 1 # Assessment Impression: - Migraine (Complex) Favor migraine # Plan Thrombolytic/Intervention: Possible IA candidate Thrombolytic Exclusion (< 3 hour window): - non-disabling deficit Possible IA Candidate: - no signs and symptoms of LVO - CTA pending Target Blood Pressure: SBP < 220 Imaging: (urgency: STAT): - CT Angiogram Head and CT Angiogram Neck AND call back with results if abnormal - CT Head without contrast Medication: - migraine cocktail: Toradol 30 mg IV + Benadryl 25 mg IV + antiemetic IV if no hemorrhage Other: - If patient has any neurological deterioration please call me back immediately - If CTA negative and symptoms resolved may dispo; otherwise would admit for MRI and symptom control - I have discussed my recommendations with the referring provider - would not pursue stroke work-up if MRI is negative # Logistics Attestation of consult completion: The patient is located at: [facility]. Facility staff participated in the visit. I performed this telemedicine visit from my offsite office utilizing interactive 2 way audio and visual telecommunication technology. Total time spent in telemedicine encounter: I spent 21 minutes reviewing clinical data and/or imaging, obtaining history, examining the patient, communicating with the onsite care team, and in preparation of this report. Critical Care time: 21 minutes of this encounter were critical care time. Due to a high probability of clinically significant, life-threatening neurologic deterioration, the patient required my highest level of preparedness to intervene emergently. I spent this critical care time managing the patient in conjunction with on-site providers who requested my consultation. In addition to the above, this critical care time included recommendation and review of studie s, including imaging; arranging an urgent treatment and management plan with on- site providers; evaluation of patient's response to treatment; and documentation. This critical care time was performed to assess and manage the high probability of imminent, life-threatening deterioration that could result in neurologic catastrophe. # Demographics First Name: VASILE Hendrickson Last Name: FRANKLIN Facility: [facility] Electronically signed at 09/20/2024 12:50 (Central Time) by Odilon Palumbo MD Neuro Consult Order placed for: Yes AXEL PALUMBO MD Sep 20, 2024 12:51
--- NOTE | 2024-09-20 12:54 | NUR ---
PT OOB AMBULATING TO BR W/MINOR ASSIST. SHE HAS A STEADY GAIT
[2024-09-20 12:59] LABS: BASOPHILS # (AUTO) 0.03 K/uL (0.00-0.20); BASOPHILS % (AUTO) 0.4 % (0.0-5.0); EOSINOPHILS # (AUTO) 0.24 K/uL (0.00-0.70); EOSINOPHILS % (AUTO) 3.5 % (0.0-8.0); HEMATOCRIT 34.1 % (36-48); IMMATURE GRANULOCYTE ABSOLUTE 0.05 K/uL (0-1); LYMPHOCYTES # (AUTO) 0.3 K/uL (1.0-4.8); LYMPHOCYTES % (AUTO) 4.2 % (21.0-51.0); MEAN CORPUSCULAR HEMOGLOBIN 31.3 pg (27.0-33.0); MEAN CORPUSCULAR HGB CONC 32.3 g/dL (32.0-36.0); MEAN CORPUSCULAR VOLUME 96.9 fL (79-99); MONOCYTES # (AUTO) 1.2 K/uL (0.1-1.0); MONOCYTES % (AUTO) 16.9 % (3.0-13.0); NEUTROPHILS # (AUTO) 5.1 K/uL (1.8-7.7); NEUTROPHILS % (AUTO) 74.3 % (40.0-77.0); PLATELET COUNT (AUTO) 172 K/uL (130-400); RED BLOOD CELL COUNT(AUTO) 3.52 MIL/uL (4.00-5.50); RED CELL DISTRIBUTION WIDTH 14.2 % (11.0-15.5); WHITE BLOOD COUNT (AUTO) 6.9 K/uL (4.8-10.8)
[2024-09-20 13:01] LABS: CREATININE 0.9 mg/dL (0.5-1.0); POTASSIUM 4.1 mmol/L (3.5-5.1)
--- NOTE | 2024-09-20 13:08 | HMCIMG ---
CT HEAD/BRAIN W/O CONTRAST HISTORY: Slurred speech COMPARISON: None TECHNIQUE: Multiple sequential axial images of the head were obtained from the base of the skull through vertex. Patient was not given contrast through intravenous route. FINDINGS: The ventricles and extraventricular CSF spaces are dilated consistent with cerebral atrophy. Nonspecific white matter changes seen. There is no midline shift, mass effect or herniation. No acute intracranial bleed is seen. Visualized portion of the paranasal sinuses are grossly within normal limits. IMPRESSION: 1. No acute intracranial bleed is seen. 2. Atrophy with white matter changes. CT was performed with one or more following dose reduction techniques: automated exposure control, adjustment of the mA and kv according to patient's size, or use of a iterative reconstruction technique.
[2024-09-20 13:11] LABS: APPEARANCE,URINE CLEAR (CLEAR); BILIRUBIN,URINE NEGATIVE (NEGATIVE); COLOR,URINE LIGHT-YELLOW (YELLOW); GLUCOSE, URINE (UA) NEGATIVE (NEGATIVE); KETONES,URINE NEGATIVE (NEGATIVE); LEUKOCYTE ESTERASE ,URINE NEGATIVE Leu/uL (NEGATIVE); NITRATE,URINE NEGATIVE (NEGATIVE); OCCULT BLOOD,URINE NEGATIVE (NEGATIVE); PH,URINE 5.5 (5.0-8.0); PROTEIN,URINE NEGATIVE (NEGATIVE); UROBILINOGEN,URINE 0.2 mg/dL (0.2-1.0); WBC,URINE 0-1 /HPF (0-1)
--- NOTE | 2024-09-20 13:12 | EKG ---
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1960 Requested By: SARBJIT OWENS Order Number: [id number] Reading MD: Everardo Rodriguez Measurements Intervals [place] Rate: 75 P: 0 [place]: 0 QRS: 38 QRSD: 119 T: 179 QT: 417 QTc: 468 Interpretive Statements Atrial fibrillation Nonspecific intraventricular conduction delay Repol abnrm suggests ischemia, lateral leads Compared to ECG 12/30/2023 12:13:10 Intraventricular conduction delay now present Early repolarization now present Sinus rhythm no longer present First degree AV block no longer present T-wave abnormality no longer present Possible ischemia still present Electronically Signed On 09-20-2024 22:05:02 DELINQUENT NOTICE MACHINE OPERATOR by Everardo Rodriguez Please click the below link to view image of tracing.
--- NOTE | 2024-09-20 13:55 | NUR ---
MOVED TO ER 11 AT THIS TIME
--- NOTE | 2024-09-20 14:03 | NUR ---
AT THIS TIME ALL SYMPTOMS HAVE RESOLVED. PRIOR TO ARRIVAL PT C/O SLURRED SPEECH AND LEFT SIDE FACIAL DROOP. NIHSS 0
--- NOTE | 2024-09-20 14:03 | NUR ---
NIHSS 0
--- NOTE | 2024-09-20 14:41 | HMCIMG ---
CHEST 1VW HISTORY: Shortness of breath COMPARISON: 01/05/2024 FINDINGS: A frontal projection of the chest was obtained. Prominent interstitial markings are seen with possible superimposed infiltrates. The heart is borderline enlarged. Prominent interstitial markings are seen. Right venous catheter is seen. Poststernotomy changes are seen. The aortic calcifications are seen. IMPRESSION: 1. Prominent interstitial markings are seen with possible superimposed infiltrates.
[2024-09-20 15:00] LABS: INR 1.27 (0.85-1.15); PROTHROMBIN TIME 13.9 SEC (9.6-11.6)
--- NOTE | 2024-09-20 15:45 | ERN ---
General Chief Complaint: Stroke Symptoms Stated Complaint: SLURRED SPEECH 40 MINUTES COST AND RISK ANALYSIS MANAGER Time Seen by MD: 12:09 History of Present Illness Initial Comments 63-year-old female history of atrial fibrillation and hypertension came in for slurred speech and left facial droop. Patient states his symptoms started 40 minutes prior to arrival. Patient also states that her symptoms are improving INR upon arrival her symptoms resolved. Patient otherwise has no concerns. Allergies: Coded Allergies: Penicillins (Verified Allergy, Unknown, 04/14/20) azithromycin (Verified Allergy, Unknown, 04/14/20) meperidine (Verified Allergy, Unknown, 04/14/20) Home Meds Reported Medications [Procrit] No Conflict Check, SQ AD PRN for ANEMIA 12/30/23 Isosorbide Dinitrate (Isosorbide Dinitrate) 30 Mg Tablet, 30 MG PO TID, TAB 12/30/23 Hydralazine HCl (Hydralazine HCl) 25 Mg Tablet, 75 MG PO TID, TAB 12/30/23 Furosemide (Furosemide) 20 Mg Tablet, 40 MG PO BID, TAB 12/30/23 Tacrolimus Anhydrous (Prograf/Fk-506) 1 Mg Cap, 1 CAP PO DAILY 09/03/23 Warfarin Sodium (Warfarin Sodium) Unknown Strength Tablet, PO DAILY 09/03/23 Prednisone (Deltasone / Orasone) 1 Mg Tab, 4 TAB PO DAILY 09/03/23 Metoprolol Succinate (Metoprolol Succinate) 100 Mg Tab.er.24h, 0.5 TAB PO BID 09/03/23 Levothyroxine Sodium (Levothyroxine Sodium) 137 Mcg Tablet, 137 MCG PO ACBKFST, TAB 03/25/23 Past Medical History Past Medical History: A-Fib, Heart Disease Medical History Other: LUPUS, KIDNEY TRANSPLANT Past Surgical History: Other Surgical History Other: KIDNEY TRANSPLANT, MITRAL AND AORTIC VALVES Family History Family History: CAD, HTN Social History Social History: Negative, Lives with family ROS Dictation CONSTITUTIONAL: Negative except for HPI HEAD/FACE: Negative except for HPI EENT: Negative except for HPI RESPIRATORY: Negative except for HPI GASTROINTESTINAL/ABDOMINAL: Negative except for HPI GENITOURINARY: Negative except for HPI MUSCULOSKELETAL: Negative except for HPI INTEGUMENTARY: Negative except for HPI NEUROLOGICAL/PSYCH: Negative except for HPI HEMATOLOGIC/LYMPHATIC: Negative except for HPI All Systems Negative, Except as noted above. 13 point review of systems assessed and all negative except for above. Physical Exam Physical Exam Dictation Vital Signs reviewed General Appearance: Alert, oriented x 3, no acute distress, well developed, nourished. Head and Face: non-traumatic. Eyes: PERRL, pink conjunctivas, eyelid no trauma, anterior chamber with arcus senilis. Ears: Pinnas intact and no signs of trauma or erythema ear canals clear and no discharge TM no erythema Nose: No discharge, no bleeding. Oropharynx: Mouth normal, tongue pink, pharynx clear,no erythema, tonsils no exudates, no abscesses noted, mucous membrane moist Neck: Supple, non-tender, no thyromegaly, no masses, no JVD, no bruits Breast:Deferred Chest:No tenderness, no crepitus, no paradoxical movement, no retractions Lungs:Clear, well-ventilated, symmetric, no rales, no wheezing, no rhonchi, no stridor, good breath sounds bilaterally Heart: Regular rate, regular rhythm, no murmur, no gallops Vascular: no peripheral edema, Abdomen: Soft, positive bowel sounds, nondistended, no guarding, nontender, no rebound, no masses no hepatomegaly, no splenomegaly, no Novak's sign, no hernias. Rectal: Deferred Genital: Deferred Neurological: Normal speech, motor function intact, sensory function intact Musculoskeletal: Neck nontender, full range of motion, back nontender, full range of motion, Extremities: nontender, full range of motion Skin: Color pink, dry, no turgor, no rash, no lacerations, no abrasions, no contusions. Lymphatic: Deferred NIH STROKE SCALE: NIH STROKE SCALE Response (Comments) Value Level of Consciousness Alert 0 Ask patient month and their age Answers both correct 0 Command to open eyes, make fist and let go Obeys both correct 0 Best gaze (horizontal eye movement) Normal 0 Visual Field Testing No Visual Field Loss 0 Facial Paresis Normal / Symmetrical 0 Motor Function - Left Arm Normal 0 Motor Function - Right Arm Normal 0 Motor Function - Left Leg Normal 0 Motor Function - Right Leg Normal 0 Limb Ataxia No Ataxia 0 Sensory-pin prick to arms, legs, trunk and face Normal 0 Best Language (describe picture, name items and read) No Aphasia 0 Dysarthria (read several words) Normal Articulation 0 Extinction and Inattention Normal 0 Total Results Laboratory and Microbiology Lab and Micro Result Laboratory Tests Test 09/20/24 12:12 09/20/24 12:38 09/20/24 13:00 Whole Blood Glucose 113 MG/DL (70-110) H White Blood Count 6.9 K/uL (4.8-10.8) Red Blood Count 3.52 MIL/uL (4.00-5.50) L Hemoglobin 11.0 g/dL (12.0-16.0) L Hematocrit 34.1 % (36-48) L Mean Corpuscular Volume 96.9 fL (79-99) Mean Corpuscular Hemoglobin 31.3 pg (27.0-33.0) Mean Corpuscular Hemoglobin Concent 32.3 g/dL (32.0-36.0) Red Cell Distribution Width 14.2 % (11.0-15.5) Platelet Count 172 K/uL (130-400) Mean Platelet Volume 11.2 fL (7.5-10.5) H Immature Granulocyte % (Auto) 0.7 % (0-1) Neutrophils (%) (Auto) 74.3 % (40.0-77.0) Lymphocytes (%) (Auto) 4.2 % (21.0-51.0) L Monocytes (%) (Auto) 16.9 % (3.0-13.0) H Eosinophils (%) (Auto) 3.5 % (0.0-8.0) Basophils (%) (Auto) 0.4 % (0.0-5.0) Neutrophils # (Auto) 5.1 K/uL (1.8-7.7) Lymphocytes # (Auto) 0.3 K/uL (1.0-4.8) L Monocytes # (Auto) 1.2 K/uL (0.1-1.0) H Eosinophils # (Auto) 0.24 K/uL (0.00-0.70) Basophils # (Auto) 0.03 K/uL (0.00-0.20) Absolute Immature Granulocyte (auto 0.05 K/uL (0-1) Nucleated Red Blood Cells 0.0 % (0.0-0.19) White Cell Morphology Comment See comments Prothrombin Time 13.9 SEC (9.6-11.6) H Prothromb Time International Ratio 1.27 (0.85-1.15) H Activated Partial Thromboplast Time 30.2 SEC (26.3-35.5) Sodium Level 138 mmol/L (136-145) Potassium Level 4.1 mmol/L (3.5-5.1) Chloride Level 103 mmol/L (101-111) Carbon Dioxide Level 29 mmol/L (21-32) Blood Urea Nitrogen 29 mg/dL (7-18) H Creatinine 0.9 mg/dL (0.5-1.0) Glomerular Filtration Rate Calc 71 mL/min (>90) Random Glucose 101 mg/dL (70-105) Total Calcium 8.9 mg/dL (8.5-10.1) Urine Color LIGHT-YELLOW (YELLOW) Urine Appearance CLEAR (CLEAR) Urine pH 5.5 (5.0-8.0) Urine Specific [place] 1.007 (1.001-1.031) Urine Protein NEGATIVE mg/dL (NEGATIVE) Urine Glucose (UA) NEGATIVE mg/dL (NEGATIVE) Urine Ketones NEGATIVE mg/dL (NEGATIVE) Urine Occult Blood NEGATIVE (NEGATIVE) Urine Nitrate NEGATIVE (NEGATIVE) Urine Bilirubin NEGATIVE mg/dL (NEGATIVE) Urine Urobilinogen 0.2 mg/dL (0.2-1.0) Urine Leukocyte Esterase NEGATIVE Her[place]/uL Urine RBC None /HPF (0-1) Urine WBC 0-1 /HPF (0-1) Urine Bacteria None /HPF (None Seen) MDM CC: Historian: Patient Comorbidities: Limitations by social determinants of health: None Differential diagnosis: Clinical exam: Vital signs: EKG: Labs: ED Course Orders Procedure Category Date Status Time Vital Signs Per CPOE 09/20/24 Transmitted Routine 12:10 Cardiac Monitoring CPOE 09/20/24 Transmitted 12:10 Bedside Glucose CPOE 09/20/24 Transmitted Fingerstick 12:10 Oxygen By Nc/Pulse Ox CPOE 09/20/24 Transmitted 12:10 Saline Lock Iv CPOE 09/20/24 Transmitted 12:10 Nothing By Mouth DIET 09/20/24 Transmitted Lunch Bedside Swallow Eval ST 09/20/24 Transmitted 12:10 Cbc With Differential LAB 09/20/24 Complete 12:10 Partial LAB 09/20/24 Complete Thromboplastin Time 12:10 12 Lead Ekg Tracing- EKG 09/20/24 Complete Technical 12:15 Basic Metabolic Panel LAB 09/20/24 Complete 12:15 Urinalysis LAB 09/20/24 Complete W/Microscopic 12:15 Chest 1vw RAD 09/20/24 Resulted 12:15 Ct Head/Brain W/O CT 09/20/24 Resulted Contrast 12:42 Prothrombin Time With LAB 09/20/24 Complete INR 14:08 Vital Signs Date Time Temp Pulse Resp B/P (MAP) Pulse Ox O2 Delivery O2 Flow Rate FiO2 09/20/24 13:43 77 20 160/82 98 Room Air* 0 21 09/20/24 12:10 97.9 77 16 137/68 99 Room Air 0 DX & DISP Disposition: Transfer Departure Impression: Primary Impression: TIA (transient ischemic attack) Condition: Stable Referrals: LUTHER BARBOSA MD (PCP) SARBJIT OWENS MD Sep 20, 2024 15:45
--- NOTE | 2024-09-20 16:30 | NUR ---
BEDSIDE SWALLOW EVAL COMPLETED. No overt s/s of aspiration. Recommend regular solids, thin liquids and pills whole with liquids as tolerated. MOBILE HEAVY EQUIPMENT OPERATOR reviewed results and recommendations with patient and nurse Linwood. MOBILE HEAVY EQUIPMENT OPERATOR educated patient on risks and consequences of aspiration. Speech therapy not warranted at this time. All questions answered. Addendum: 09/20/[address] TRISTAN JUSTIN Amended: Links added.
--- NOTE | 2024-09-20 16:35 | NUR ---
COGNITIVE-LINGUISTIC EVALUATION COMPLETED. WITHIN FUNCTIONAL LIMITS. EVALUATION: Pt AAOX4. Pt REQUESTS WANTS AND NEEDS INDEPENDENTLY WITH CLEAR SPEECH INTELLIGIBILITY. Pt COMMUNICATING AT CONVERSATIONAL LEVEL WITH NO DEFICITS IDENTIFIED AT THIS TIME. Pt COMPLETED COGNITIVE-LINGUISTIC EVALUATION WITH CORRECT AND TIMELY ANSWERS. SPEECH THERAPY NOT WARRANTED. ALL QUESTIONS ANSWERED AT THIS TIME. BOOK TRIMMER REVIEWED RESULTS AND RECOMMENDATIONS WITH PATIENT AND NURSE CHELSI. Addendum: 09/20/[address] TRISTAN JUSTIN Amended: Links added.
--- NOTE | 2024-09-20 18:54 | NUR ---
[facility] MADE AWARE OF TRANSFER BY CUSTODIAN MANAGER
--- NOTE | 2024-09-20 19:00 | NUR ---
PATIENT REPORT GIVEN TO NURSE MATHUR WITH [facility] [place]
--- NOTE | 2024-09-20 19:16 | NUR ---
[facility] HERE TO EDITOR PUBLICATIONS PT AT THIS TIME.
[2024-09-20 19:17] VITALS: BP 162/78; PULSE 81; RESP 16; O2SAT 99
== END 2024-09-20 19:16 | disposition short-term general hospital (02) ==
LOC: EDH 12:06
DX: G45.9 Transient cerebral ischemic attack, unspecified (principal); I10 Essential (primary) hypertension; I48.91 Unspecified atrial fibrillation; Z79.01 Long term (current) use of anticoagulants; Z79.52 Long term (current) use of systemic steroids; Z79.621 Long term (current) use of calcineurin inhibitor; Z79.899 Other long term (current) drug therapy; Z88.0 Allergy status to penicillin; Z88.1 Allergy status to other antibiotic agents; Z88.5 Allergy status to narcotic agent; Z94.0 Kidney transplant status
CPT/HCPCS: 36415; 70450; 71045; 80048; 81001; 82948; 85025; 85610; 85730; 92522; 92610; 93005; 99285